=== PATIENT | female | born 1950 | race Caucasian/White ===

== ENCOUNTER → 2017-05-14 | Outpatient (CLI) | payer OTHER ==
[~2017-05-14] MED LIST: IOPAMIDOL (ISOVUE 370) 100 ML BTL IV ONE
== END ==
LOC: CIMAGING 10:45
PROVIDERS: ATTEND Internal Medicine Cardiovascular Disease
DX: I70.0 Atherosclerosis of aorta (principal); I70.1 Atherosclerosis of renal artery; N28.89 Other specified disorders of kidney and ureter; I10 Essential (primary) hypertension; E78.00 Pure hypercholesterolemia, unspecified; I25.10 Atherosclerotic heart disease of native coronary artery without angina pectoris; R00.2 Palpitations
CPT/HCPCS: 74175-PO; Q9967

== ENCOUNTER 2017-08-09 12:31 | Inpatient (IN) | payer OTHER ==
--- NOTE | 2017-08-09 13:17 | EDPHY ---
H & P Time Seen by Provider: 08/09/17 12:51 HPI/ROS: CHIEF COMPLAINT: Hypertension, shakiness HISTORY OF PRESENT ILLNESS: 67-year-old female presents with hypertension and shakiness. She was in the office to see Dr. Gauthier today and began to feel short of breath, shaky and nauseated. Dr. Gauthier checked her blood pressure and it was 220/110. She was sent to the emergency department for admission for evaluation of possible Maris disease verses pheochromocytoma. She currently feels better and is no longer so shaky her nauseated. She feels that her blood pressure the medication has subsided. She has a history of episodic hypertension, that is symptomatic. The hypertension usually occurs sporadically , every week or 2. However, since yesterday she has had multiple episodes of shakiness, shortness of breath and nausea, attributed to elevated blood pressure. Recently she had an elevated ACTH and a slight increase in metanephrines on a 24 hour urine sample. REVIEW OF SYSTEMS: Constitutional: No fever, no chills Eyes: No visual changes ENT: No sore throat Respiratory: No cough Cardiac: No chest pain Gastrointestinal: no vomiting, no abdominal pain Genitourinary: no dysuria Musculoskeletal: No leg pain or swelling Skin: No rash Neurological: No headache, no numbness, no weakness Psychiatric: No depression Past Medical/Surgical History: Hypertension, on lisinopril and diltiazem Social History: No recent alcohol Smoking Status: Former smoker Physical Exam: General Appearance: Alert, appears anxious Eyes: Pupils equal and round, no conjunctival pallor or injection ENT, Mouth: Mucous membranes moist Neck: Normal inspection Respiratory: Lungs are clear to auscultation Cardiovascular: Regular rate and rhythm, no murmur Gastrointestinal: Abdomen is soft and nontender Neurological: A&O, nonfocal exam Skin: Warm and dry, no rash Extremities: Nontender, no pedal edema Psychiatric: anxious Constitutional: Initial Vital Signs Temperature (C) 37 C 08/09/17 12:36 Heart Rate 104 H 08/09/17 12:36 Respiratory Rate 20 08/09/17 12:36 Blood Pressure 182/92 H 08/09/17 12:36 O2 Sat (%) 96 08/09/17 12:36 O2 Delivery Mode Room Air Allergies/Adverse Reactions: Penicillins Allergy (Verified 08/09/17 12:33) Home Medications: Medication Instructions Recorded Aspirin [Aspirin 81mg (*)] 81 mg PO DAILY 08/09/17 Diltiazem HCl [Diltiazem ER] 120 mg PO DAILY 08/09/17 Lisinopril [Zestril 20 mg (*)] 20 mg PO BID 08/09/17 Omeprazole [Prilosec 20 mg] 20 mg PO HS 08/09/17 PARoxetine HCL [Paroxetine Cr] 37.5 mg PO HS 08/09/17 Simvastatin [Zocor] 20 mg PO HS 08/09/17 ZOLPIDEM TARTRATE [Ambien CR 12.5 12.5 mg PO HS 08/09/17 mg] lamoTRIgine [Lamictal] 300 mg PO HS 08/09/17 Medical Decision Making - Diagnostics EKG Interpretation: EKG interpreted by me reveals sinus tachycardia, rate 104, no ST or T segment changes. ED Course/Re-evaluation: I spoke with Dr. Gauthier prior to this patient's arrival. She is concerned about [place] disease versus pheochromocytoma and requests admission for further evaluation. She requests a repeat 24 hour urine for metanephrines and a pituitary MRI. On my initial exam, the patient is feeling much better. Her blood pressure continues to be elevated. No blood pressure medication given while she was in the emergency department. No evidence of hypertensive emergency. EKG reveals no evidence of ischemia or dysrhythmia. Pituitary MRI ordered. She was stable during her emergency department stay. 1:20 p.m.-the hospitalist service was consulted for admission. Dr. Blayne Moody saw her in the emergency department. Differential Diagnosis: Differential diagnosis includes though is not limited to intracranial hemorrhage , acute coronary syndrome, acute renal insufficiency, Maris's disease, pheochromocytoma. - Data Points Laboratory Results: Laboratory Results 08/09/17 13:28 08/09/17 13:28 Medications Given: Acetaminophen (Tylenol) 650 mg PO Q4HRS PRN PRN Reason: Pain, Mild/Fever, Can Take PO Stop: 02/05/18 13:30 Last Admin: 08/09/17 20:24 Dose: 650 mg Aspirin (Aspirin) 81 mg PO DAILY [facility] Stop: 02/06/18 08:59 Last Admin: 08/11/17 08:02 Dose: 81 mg Atorvastatin Calcium (Lipitor) 10 mg PO HS [facility] Stop: 02/05/18 20:59 Last Admin: 08/10/17 20:24 Dose: 10 mg Diltiazem HCl (Cardizem Er Q24hr) 120 mg PO BID [facility] Stop: 02/06/18 12:14 Last Admin: 08/11/17 08:02 Dose: 120 mg Lisinopril (Zestril) 20 mg PO BID [facility] Stop: 02/05/18 20:59 Last Admin: 08/11/17 08:01 Dose: 20 mg Miscellaneous Medication (Non-Formulary) 0 ea PO [facility] Stop: 02/05/18 20:59 Last Admin: 08/10/17 20:23 Dose: 300 mg Ondansetron HCl (Zofran Odt) 4 mg PO Q4HRS PRN PRN Reason: Nausea/Vomiting, Use 1st Stop: 02/05/18 13:30 Last Admin: 08/10/17 12:32 Dose: 4 mg Pantoprazole Sodium (Protonix) 40 mg PO DAILY [facility] Stop: 02/06/18 08:59 Last Admin: 08/11/17 08:01 Dose: 40 mg Paroxetine HCl (Paxil Cr) 25 mg PO [facility] Stop: 02/05/18 20:59 Last Admin: 08/10/17 20:23 Dose: 25 mg Paroxetine HCl (Paxil Cr) 12.5 mg PO [facility] Stop: 02/05/18 20:59 Last Admin: 08/10/17 20:24 Dose: 12.5 mg Zolpidem Tartrate (Ambien) 10 mg PO [facility] Stop: 02/05/18 20:59 Last Admin: 08/10/17 20:24 Dose: 10 mg Discontinued Medications Dexamethasone (Decadron Intensol) 1 mg PO ONCE ONE Stop: 08/10/17 23:01 Last Admin: 08/10/17 23:00 Dose: 1 mg Diltiazem HCl (Cardizem Er Q24hr) 120 mg PO [facility] Stop: 02/05/18 20:59 Last Admin: 08/09/17 20:24 Dose: 120 mg Departure - Departure Disposition: [facility] Acute Clinical Impression: Hypertensive urgency Condition: Good
--- NOTE | 2017-08-09 13:17 | EDPHY ---
H & P Time Seen by Provider: 08/09/17 12:51 HPI/ROS: CHIEF COMPLAINT: Hypertension, shakiness HISTORY OF PRESENT ILLNESS: 67-year-old female presents with hypertension and shakiness. She was in the office to see Dr. Gauthier today and began to feel short of breath, shaky and nauseated. Dr. Gauthier checked her blood pressure and it was 220/110. She was sent to the emergency department for admission for evaluation of possible Maris disease verses pheochromocytoma. She currently feels better and is no longer so shaky her nauseated. She feels that her blood pressure the medication has subsided. She has a history of episodic hypertension, that is symptomatic. The hypertension usually occurs sporadically , every week or 2. However, since yesterday she has had multiple episodes of shakiness, shortness of breath and nausea, attributed to elevated blood pressure. Recently she had an elevated ACTH and a slight increase in metanephrines on a 24 hour urine sample. REVIEW OF SYSTEMS: Constitutional: No fever, no chills Eyes: No visual changes ENT: No sore throat Respiratory: No cough Cardiac: No chest pain Gastrointestinal: no vomiting, no abdominal pain Genitourinary: no dysuria Musculoskeletal: No leg pain or swelling Skin: No rash Neurological: No headache, no numbness, no weakness Psychiatric: No depression Past Medical/Surgical History: Hypertension, on lisinopril and diltiazem Social History: No recent alcohol Smoking Status: Former smoker Physical Exam: General Appearance: Alert, appears anxious Eyes: Pupils equal and round, no conjunctival pallor or injection ENT, Mouth: Mucous membranes moist Neck: Normal inspection Respiratory: Lungs are clear to auscultation Cardiovascular: Regular rate and rhythm, no murmur Gastrointestinal: Abdomen is soft and nontender Neurological: A&O, nonfocal exam Skin: Warm and dry, no rash Extremities: Nontender, no pedal edema Psychiatric: anxious Constitutional: Initial Vital Signs Temperature (C) 37 C 08/09/17 12:36 Heart Rate 104 H 08/09/17 12:36 Respiratory Rate 20 08/09/17 12:36 Blood Pressure 182/92 H 08/09/17 12:36 O2 Sat (%) 96 08/09/17 12:36 O2 Delivery Mode Room Air Allergies/Adverse Reactions: Penicillins Allergy (Verified 08/09/17 12:33) Home Medications: Medication Instructions Recorded Aspirin [Aspirin 81mg (*)] 81 mg PO DAILY 08/09/17 Diltiazem HCl [Diltiazem ER] 120 mg PO DAILY 08/09/17 Lisinopril [Zestril 20 mg (*)] 20 mg PO BID 08/09/17 Omeprazole [Prilosec 20 mg] 20 mg PO HS 08/09/17 PARoxetine HCL [Paroxetine Cr] 37.5 mg PO HS 08/09/17 Simvastatin [Zocor] 20 mg PO HS 08/09/17 ZOLPIDEM TARTRATE [Ambien CR 12.5 12.5 mg PO HS 08/09/17 mg] lamoTRIgine [Lamictal] 300 mg PO HS 08/09/17 Medical Decision Making - Diagnostics EKG Interpretation: EKG interpreted by me reveals sinus tachycardia, rate 104, no ST or T segment changes. ED Course/Re-evaluation: I spoke with Dr. Gauthier prior to this patient's arrival. She is concerned about [place] disease versus pheochromocytoma and requests admission for further evaluation. She requests a repeat 24 hour urine for metanephrines and a pituitary MRI. On my initial exam, the patient is feeling much better. Her blood pressure continues to be elevated. No blood pressure medication given while she was in the emergency department. No evidence of hypertensive emergency. EKG reveals no evidence of ischemia or dysrhythmia. Pituitary MRI ordered. She was stable during her emergency department stay. 1:20 p.m.-the hospitalist service was consulted for admission. Dr. Blayne Moody saw her in the emergency department. Differential Diagnosis: Differential diagnosis includes though is not limited to intracranial hemorrhage , acute coronary syndrome, acute renal insufficiency, Maris's disease, pheochromocytoma. - Data Points Laboratory Results: Laboratory Results 08/09/17 13:28 08/09/17 13:28 Medications Given: Acetaminophen (Tylenol) 650 mg PO Q4HRS PRN PRN Reason: Pain, Mild/Fever, Can Take PO Stop: 02/05/18 13:30 Last Admin: 08/09/17 20:24 Dose: 650 mg Aspirin (Aspirin) 81 mg PO DAILY [facility] Stop: 02/06/18 08:59 Last Admin: 08/11/17 08:02 Dose: 81 mg Atorvastatin Calcium (Lipitor) 10 mg PO HS [facility] Stop: 02/05/18 20:59 Last Admin: 08/10/17 20:24 Dose: 10 mg Diltiazem HCl (Cardizem Er Q24hr) 120 mg PO BID [facility] Stop: 02/06/18 12:14 Last Admin: 08/11/17 08:02 Dose: 120 mg Lisinopril (Zestril) 20 mg PO BID [facility] Stop: 02/05/18 20:59 Last Admin: 08/11/17 08:01 Dose: 20 mg Miscellaneous Medication (Non-Formulary) 0 ea PO [facility] Stop: 02/05/18 20:59 Last Admin: 08/10/17 20:23 Dose: 300 mg Ondansetron HCl (Zofran Odt) 4 mg PO Q4HRS PRN PRN Reason: Nausea/Vomiting, Use 1st Stop: 02/05/18 13:30 Last Admin: 08/10/17 12:32 Dose: 4 mg Pantoprazole Sodium (Protonix) 40 mg PO DAILY [facility] Stop: 02/06/18 08:59 Last Admin: 08/11/17 08:01 Dose: 40 mg Paroxetine HCl (Paxil Cr) 25 mg PO [facility] Stop: 02/05/18 20:59 Last Admin: 08/10/17 20:23 Dose: 25 mg Paroxetine HCl (Paxil Cr) 12.5 mg PO [facility] Stop: 02/05/18 20:59 Last Admin: 08/10/17 20:24 Dose: 12.5 mg Zolpidem Tartrate (Ambien) 10 mg PO [facility] Stop: 02/05/18 20:59 Last Admin: 08/10/17 20:24 Dose: 10 mg Discontinued Medications Dexamethasone (Decadron Intensol) 1 mg PO ONCE ONE Stop: 08/10/17 23:01 Last Admin: 08/10/17 23:00 Dose: 1 mg Diltiazem HCl (Cardizem Er Q24hr) 120 mg PO [facility] Stop: 02/05/18 20:59 Last Admin: 08/09/17 20:24 Dose: 120 mg Departure - Departure Disposition: [facility] Acute Clinical Impression: Hypertensive urgency Condition: Good
--- NOTE | 2017-08-09 13:17 | EDPHY ---
H & P Time Seen by Provider: 08/09/17 12:51 HPI/ROS: CHIEF COMPLAINT: Hypertension, shakiness HISTORY OF PRESENT ILLNESS: 67-year-old female presents with hypertension and shakiness. She was in the office to see Dr. Gauthier today and began to feel short of breath, shaky and nauseated. Dr. Gauthier checked her blood pressure and it was 220/110. She was sent to the emergency department for admission for evaluation of possible Maris disease verses pheochromocytoma. She currently feels better and is no longer so shaky her nauseated. She feels that her blood pressure the medication has subsided. She has a history of episodic hypertension, that is symptomatic. The hypertension usually occurs sporadically , every week or 2. However, since yesterday she has had multiple episodes of shakiness, shortness of breath and nausea, attributed to elevated blood pressure. Recently she had an elevated ACTH and a slight increase in metanephrines on a 24 hour urine sample. REVIEW OF SYSTEMS: Constitutional: No fever, no chills Eyes: No visual changes ENT: No sore throat Respiratory: No cough Cardiac: No chest pain Gastrointestinal: no vomiting, no abdominal pain Genitourinary: no dysuria Musculoskeletal: No leg pain or swelling Skin: No rash Neurological: No headache, no numbness, no weakness Psychiatric: No depression Past Medical/Surgical History: Hypertension, on lisinopril and diltiazem Social History: No recent alcohol Smoking Status: Former smoker Physical Exam: General Appearance: Alert, appears anxious Eyes: Pupils equal and round, no conjunctival pallor or injection ENT, Mouth: Mucous membranes moist Neck: Normal inspection Respiratory: Lungs are clear to auscultation Cardiovascular: Regular rate and rhythm, no murmur Gastrointestinal: Abdomen is soft and nontender Neurological: A&O, nonfocal exam Skin: Warm and dry, no rash Extremities: Nontender, no pedal edema Psychiatric: anxious Constitutional: Initial Vital Signs Temperature (C) 37 C 08/09/17 12:36 Heart Rate 104 H 08/09/17 12:36 Respiratory Rate 20 08/09/17 12:36 Blood Pressure 182/92 H 08/09/17 12:36 O2 Sat (%) 96 08/09/17 12:36 O2 Delivery Mode Room Air Allergies/Adverse Reactions: Penicillins Allergy (Verified 08/09/17 12:33) Home Medications: Medication Instructions Recorded Aspirin [Aspirin 81mg (*)] 81 mg PO DAILY 08/09/17 Diltiazem HCl [Diltiazem ER] 120 mg PO DAILY 08/09/17 Lisinopril [Zestril 20 mg (*)] 20 mg PO BID 08/09/17 Omeprazole [Prilosec 20 mg] 20 mg PO HS 08/09/17 PARoxetine HCL [Paroxetine Cr] 37.5 mg PO HS 08/09/17 Simvastatin [Zocor] 20 mg PO HS 08/09/17 ZOLPIDEM TARTRATE [Ambien CR 12.5 12.5 mg PO HS 08/09/17 mg] lamoTRIgine [Lamictal] 300 mg PO HS 08/09/17 Medical Decision Making - Diagnostics EKG Interpretation: EKG interpreted by me reveals sinus tachycardia, rate 104, no ST or T segment changes. ED Course/Re-evaluation: I spoke with Dr. Gauthier prior to this patient's arrival. She is concerned about [place] disease versus pheochromocytoma and requests admission for further evaluation. She requests a repeat 24 hour urine for metanephrines and a pituitary MRI. On my initial exam, the patient is feeling much better. Her blood pressure continues to be elevated. No blood pressure medication given while she was in the emergency department. No evidence of hypertensive emergency. EKG reveals no evidence of ischemia or dysrhythmia. Pituitary MRI ordered. She was stable during her emergency department stay. 1:20 p.m.-the hospitalist service was consulted for admission. Dr. Blayne Moody saw her in the emergency department. Differential Diagnosis: Differential diagnosis includes though is not limited to intracranial hemorrhage , acute coronary syndrome, acute renal insufficiency, Maris's disease, pheochromocytoma. - Data Points Laboratory Results: Laboratory Results 08/09/17 13:28 08/09/17 13:28 Medications Given: Acetaminophen (Tylenol) 650 mg PO Q4HRS PRN PRN Reason: Pain, Mild/Fever, Can Take PO Stop: 02/05/18 13:30 Last Admin: 08/09/17 20:24 Dose: 650 mg Aspirin (Aspirin) 81 mg PO DAILY [facility] Stop: 02/06/18 08:59 Last Admin: 08/11/17 08:02 Dose: 81 mg Atorvastatin Calcium (Lipitor) 10 mg PO HS [facility] Stop: 02/05/18 20:59 Last Admin: 08/10/17 20:24 Dose: 10 mg Diltiazem HCl (Cardizem Er Q24hr) 120 mg PO BID [facility] Stop: 02/06/18 12:14 Last Admin: 08/11/17 08:02 Dose: 120 mg Lisinopril (Zestril) 20 mg PO BID [facility] Stop: 02/05/18 20:59 Last Admin: 08/11/17 08:01 Dose: 20 mg Miscellaneous Medication (Non-Formulary) 0 ea PO [facility] Stop: 02/05/18 20:59 Last Admin: 08/10/17 20:23 Dose: 300 mg Ondansetron HCl (Zofran Odt) 4 mg PO Q4HRS PRN PRN Reason: Nausea/Vomiting, Use 1st Stop: 02/05/18 13:30 Last Admin: 08/10/17 12:32 Dose: 4 mg Pantoprazole Sodium (Protonix) 40 mg PO DAILY [facility] Stop: 02/06/18 08:59 Last Admin: 08/11/17 08:01 Dose: 40 mg Paroxetine HCl (Paxil Cr) 25 mg PO [facility] Stop: 02/05/18 20:59 Last Admin: 08/10/17 20:23 Dose: 25 mg Paroxetine HCl (Paxil Cr) 12.5 mg PO [facility] Stop: 02/05/18 20:59 Last Admin: 08/10/17 20:24 Dose: 12.5 mg Zolpidem Tartrate (Ambien) 10 mg PO [facility] Stop: 02/05/18 20:59 Last Admin: 08/10/17 20:24 Dose: 10 mg Discontinued Medications Dexamethasone (Decadron Intensol) 1 mg PO ONCE ONE Stop: 08/10/17 23:01 Last Admin: 08/10/17 23:00 Dose: 1 mg Diltiazem HCl (Cardizem Er Q24hr) 120 mg PO [facility] Stop: 02/05/18 20:59 Last Admin: 08/09/17 20:24 Dose: 120 mg Departure - Departure Disposition: [facility] Acute Clinical Impression: Hypertensive urgency Condition: Good
--- NOTE | 2017-08-09 13:23 | CPEKG ---
Heart Rate: 104 RR Interval: 577 P-R Interval: 152 QRSD Interval: 94 QT Interval: 340 QTC Interval: 448 P [place]: 63 QRS [place]: -6 T Wave [place]: 7 EKG Severity - OTHERWISE NORMAL ECG - EKG Impression: SINUS TACHYCARDIA Electronically Signed By: Marisa King 09-Aug-2017 14:11:59
[2017-08-09] MEDS ORDERED: ONDANSETRON DISINTEGRATING 4 MG TAB PO PRN ×2 (13:31)
[2017-08-09] MEDS ORDERED: ACETAMINOPHEN 325 MG TAB PO PRN ×2 (13:31)
[2017-08-09] MEDS ORDERED: ONDANSETRON 4 MG/2 ML VIAL IVP PRN ×2 (13:31)
[2017-08-09 13:37] LABS: PLATELET COUNT 310 10^3/uL (150-400)
[2017-08-09] MEDS ORDERED: GADOBUTROL 10 ML VIAL IVP ONE ×2 (14:38)
--- NOTE | 2017-08-09 15:32 | PDGENHP ---
History and Physical - Chief Complaint Acute tremulousness - History of Present Illness Primary care provider: Dr. Frannie Rosario Primary design studio consultant: Dr. Wali Jeff Primary shaft headman: Dr. Tiago Gauthier HPI: 67-year-old female presenting with acute tremulousness characterized as general body shaking with associated nausea, palpitations, shortness of breath with onset of these immediate symptoms on the day prior, beginning is soon as the patient awoke from sleep, with intermittent duration thereafter. Patient reports that the episodes sometimes last shortness 20 minutes, sometimes as long as 2 hours, and are mildly alleviated by deep slow breathing, not exacerbated by any level of physical activity. She has been checking her blood pressure during these episodes, as noted systolic levels around 190. She also checks her blood pressure when she is feeling well, and no set is generally in the 130-140 range. She reports she has been experiencing this similar constellation of symptoms for the past 3 and half years. To the patient, it seems random when she experiences these symptoms, and she can sometimes go 1-2 weeks without experiencing them at all. She was recently on a cruise, and reports that she only experience them very mildly once during that 7 day period. She recently returned home from the cruise, and reports recurrence of them since that time. She denies living a stressful life, outside of managing her symptoms. She reports she is completely adherent to her home medications, and has not had any recent changes in her antihypertensives or psychiatric medications. History Information - Allergies/Home Medication List Allergies/Adverse Reactions: Penicillins Allergy (Verified 08/09/17 12:33) Home Medications: Aspirin [Aspirin 81mg (*)] 81 mg PO DAILY 08/09/17 [Last Taken 08/09/17] Diltiazem HCl [Diltiazem ER] 120 mg PO DAILY 08/09/17 [Last Taken Unknown] Lisinopril [Zestril 20 mg (*)] 20 mg PO BID 08/09/17 [Last Taken 08/09/17] Omeprazole [Prilosec 20 mg] 20 mg PO HS 08/09/17 [Last Taken 08/08/17] PARoxetine HCL [Paroxetine Cr] 37.5 mg PO HS 08/09/17 [Last Taken 08/08/17] Simvastatin [Zocor] 20 mg PO HS 08/09/17 [Last Taken 08/08/17] ZOLPIDEM TARTRATE [Ambien CR 12.5 mg] 12.5 mg PO HS 08/09/17 [Last Taken ] lamoTRIgine [LamICTAL XR] 300 mg PO HS 08/09/17 [Last Taken 08/08/17] I have personally reviewed and updated: family history, medical history, social history, surgical history - Past Medical History hypertension (Reportedly labile, diagnosed 3 and half years ago) Additional medical history: Bipolar disorder type 2 with depressive symptoms. Recurrent small bowel obstructions - Surgical History Additional surgical history: Small-bowel obstruction with resection. Appendectomy. 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 - Family History Additional family history: No family history of endocrine disorders, no family history of labile hypertension - Social History Smoking Status: Former smoker Alcohol Use: None (Very rarely) Drug Use: None Additional social history: Patient reports she is independent in her ADLs Review of Systems Review of Systems: ROS: 10pt was reviewed & negative except for what was stated in HPI & below Constitutional: Reports: other (Tremulousness) Cardiac: Reports: palpitations Respiratory: Reports: shortness of breath Gastrointestinal: Reports: nausea Physical Exam Physical Exam: Temp Pulse Resp BP Pulse Ox 37 C 100 16 179/105 H 95 08/09/17 12:36 08/09/17 13:55 08/09/17 13:55 08/09/17 13:55 08/09/17 13:55 Constitutional: no apparent distress, appears nourished, not in pain, uncomfortable Eyes: PERRL, anicteric sclera, EOMI Ears, Nose, Mouth, Throat: moist mucous membranes, hearing normal, ears appear normal, no oral mucosal ulcers Cardiovascular: regular rate and rhythym, no murmur, rub, or gallop, No edema Respiratory: no respiratory distress, no rales or rhonchi, clear to auscultation Gastrointestinal: normoactive bowel sounds, soft, non-tender abdomen, no palpable masses, No distension Skin: warm, normal color, no rashes or abrasions, no fluctuance, no induration, No mottled Neurologic: AAOx3, sensation intact bilaterally, CN II-XII Intact, other ( Visibly tremulous upon the initiation of our exam, subsided somewhat during the exam), No weakness Psychiatric: interacting appropriately, not encephalopathic, thought process linear, anxious, No agitated Lab Data & Imaging Review 08/09/17 13:28 08/09/17 13:28 WBC 7.56 10^3/uL (3.80-9.50) 08/09/17 13:28 RBC 4.22 10^6/uL (4.18-5.33) 08/09/17 13:28 Hgb 13.1 g/dL (12.6-16.3) 08/09/17 13:28 Hct 37.7 % (38.0-47.0) L 08/09/17 13:28 MCV 89.3 fL (81.5-99.8) 08/09/17 13:28 MCH 31.0 pg (27.9-34.1) 08/09/17 13:28 MCHC 34.7 g/dL (32.4-36.7) 08/09/17 13:28 RDW 12.4 % (11.5-15.2) 08/09/17 13:28 Plt Count 310 10^3/uL (150-400) 08/09/17 13:28 MPV 8.8 fL (8.7-11.7) 08/09/17 13:28 Neut % (Auto) 78.1 % (39.3-74.2) H 08/09/17 13:28 Lymph % (Auto) 15.6 % (15.0-45.0) 08/09/17 13:28 [place] % (Auto) 5.2 % (4.5-13.0) 08/09/17 13:28 Eos % (Auto) 0.1 % (0.6-7.6) L 08/09/17 13:28 Baso % (Auto) 0.5 % (0.3-1.7) 08/09/17 13:28 Nucleat RBC Rel Count 0.0 % (0.0-0.2) 08/09/17 13:28 Absolute Neuts (auto) 5.90 10^3/uL (1.70-6.50) 08/09/17 13:28 Absolute Lymphs (auto) 1.18 10^3/uL (1.00-3.00) 08/09/17 13:28 Absolute Monos (auto) 0.39 10^3/uL (0.30-0.80) 08/09/17 13:28 Absolute Eos (auto) 0.01 10^3/uL (0.03-0.40) L 08/09/17 13:28 Absolute Basos (auto) 0.04 10^3/uL (0.02-0.10) 08/09/17 13:28 Absolute Nucleated RBC 0.00 10^3/uL (0-0.01) 08/09/17 13:28 Immature Gran % 0.5 % (0.0-1.1) 08/09/17 13:28 Immature Gran # 0.04 10^3/uL (0.00-0.10) 08/09/17 13:28 Sodium 133 mEq/L (134-144) L 08/09/17 13:28 Potassium 4.5 mEq/L (3.5-5.2) 08/09/17 13:28 Chloride 94 mEq/L (97-110) L 08/09/17 13:28 Carbon Dioxide 23 mEq/l (22-31) 08/09/17 13:28 Anion Gap 16 mEq/L (8-16) 08/09/17 13:28 BUN 12 mg/dL (7-23) 08/09/17 13:28 Creatinine 0.7 mg/dL (0.6-1.0) 08/09/17 13:28 Estimated GFR > 60 08/09/17 13:28 Glucose 148 mg/dL (70-100) H 08/09/17 13:28 Calcium 10.2 mg/dL (8.5-10.4) 08/09/17 13:28 Magnesium 1.8 mg/dL (1.6-2.3) 08/09/17 13:28 Troponin I < 0.012 ng/mL (0.000-0.034) 08/09/17 13:28 Visualized and Interpreted EKG results: Yes EKG Interpretation: Positive for: other (Sinus tachycardia with isolated ST depression in lead V6) Assessment & Plan Assessment: 67-year-old female presents with hypertensive urgency in the setting of constellation of tremulousness, nausea, palpitations, shortness of breath Plan: 1. Hypertensive urgency. Acute, new problem this provider, further workup indicated. Evidenced by systolic blood pressure in the 220s at Dr. Gauthier's office, with associated tremulousness, nausea, palpitations, shortness of breath. It is unclear whether the patient's symptoms are result of her hypertension, or whether her hypertension is result of discomfort from her symptoms. -discussed with Dr. aGuthier, she reports to me that the patient has had a 24 hour urine sample collected when she was not symptomatic, and this demonstrated a mildly elevated ACTH level, elevated metanephrines, normal cortisol, decreased urine sodium level, and she is concerned for Maris's disease -she recommends initial evaluation with pituitary MRI as well as dexamethasone suppression test in a.m. -she also recommends 24 hour urine collection for all the previously sampled levels, given the patient is now symptomatic and may demonstrate more significant abnormalities -if the pituitary MRI does not demonstrate focal mass, this does not rule out Maris's disease as the area of production can be smaller than that which can be radiographically detected, but Dr. Gauthier would recommend adrenal MRI if this initial imaging is negative to evaluate for pheochromocytoma -we discussed the possibility that all of this aforementioned testing may demonstrate no abnormalities, and it is certainly possible that the patient's initial abnormalities in her metanephrine and ACTH levels was secondary to acute stressor, and in that situation it may be more suggestive that her hypertension is a result of her symptoms, which may be more likely mood disorder mediated as the patient is able to consciously mediated them with slow deep breathing -if there are abnormalities on the above tests or further questions are posed by the results, please contact Dr. Tiago Gauthier tomorrow at [phone] -at the present time, we will continue patient's home antihypertensives, notably lisinopril 20 mg twice daily and diltiazem 240 mg at bedtime, and gauge the fluctuations in the patient's blood pressure -will also monitor the patient on telemetry to determine whether she is experiencing any arrhythmias during her symptomatic palpitations -should also be noted that review of outside records demonstrates that the patient had a cardiac catheterization on 06/09/[address] Allan Brian as further investigation for the aforementioned symptoms, and that catheterization demonstrated no evidence of obstructive coronary disease, normal ejection fraction of 70% -should also be noted that the patient had a 48 hour event monitor for evaluation of her palpitations, but she notes that she did not experience any symptoms during that time, and there were no arrhythmias noted on the monitor -consequently, I would recommend the patient have implantable linq recorder to be arranged through [facility] -the patient already underwent CT angio of the renal arteries on 05/14/2017, it did demonstrate 50% stenosis on the left, minimal on the right, this does not seem to be a degree of stenosis significant enough to be causing secondary hypertension from renal artery stenosis, but it may be a contributing factor -would recommend outpatient sleep study 2. Bipolar type 2 disease. Continue patient's home medications 3. Hyponatremia. Chronic, unclear whether that is related to the issues outlined above Diet. Cardiac Prophylaxis. High risk patient, Lovenox 40 Code. Full Disposition. Anticipated discharge is 08/10/2017, pending further workup as outlined above.
[2017-08-09] MEDS: LAMOTRIGINE 200 MG PO SCH ×2 (20:23)
[2017-08-09] MEDS: PARoxetine CR 25 MG TAB PO SCH ×2 (20:24)
[2017-08-09] MEDS: ATORVASTATIN CALCIUM 10 MG TAB PO SCH ×2 (20:24)
[2017-08-09] MEDS: ZOLPIDEM TARTRATE 5 MG TAB PO SCH ×2 (20:24)
[2017-08-09] MEDS: PARoxetine CR 12.5 MG TAB PO SCH ×2 (20:24)
[2017-08-09] MEDS: LISINOPRIL 20 MG TAB PO SCH ×2 (20:25)
[2017-08-09] MEDS ORDERED: NON-FORMULARY NEW DRUG (Omeprazole [Prilosec 20 Mg] 20 MG) PO SCH ×2 (21:00)
[2017-08-09] MEDS ORDERED: LAMOTRIGINE 300 MG PO SCH ×4 (21:00)
[2017-08-09] MEDS ORDERED: PAROXETINE HCL 37.5 MG PO SCH ×2 (21:00)
[2017-08-09] MEDS ORDERED: NON-FORMULARY NEW DRUG (Zolpidem Tartrate [Ambien Cr 12.5 Mg] 12.5 MG) PO SCH ×2 (21:00)
[2017-08-09] MEDS ORDERED: NON-FORMULARY NEW DRUG (Simvastatin [Zocor] 20 MG) PO SCH ×2 (21:00)
[2017-08-09] MEDS ORDERED: DILTIAZEM HCL 120 MG PO SCH ×2 (21:00)
[2017-08-09] MEDS ORDERED: (Lamotrigine [Lamictal Xr] 300 MG) PO SCH ×4 (21:00)
[2017-08-09] MEDS ORDERED: DILTIAZEM CD 120 MG CAP PO SCH ×2 (21:00)
[2017-08-10] MEDS: LISINOPRIL 20 MG TAB PO SCH ×4 (08:23→20:24)
[2017-08-10] MEDS: ASPIRIN 81 MG CHEWABLE TAB PO SCH ×2 (08:23)
[2017-08-10] MEDS: PANTOPRAZOLE SODIUM 40 MG TAB PO SCH ×2 (08:23)
--- NOTE | 2017-08-10 12:08 | HOSPPROG ---
Hospitalist Progress Note Assessment/Plan: Hypertensive urgency - BP improving. Concern for pheo with associated palpitations. Recent 24 hr urine revealed elevated ACTH and elevated metanephrines. Serum ACTH and metanephrines elevated. ?Maris's or pheo. Brain MRI showed very small pituitary adenoma, unlikely to be secretory per discussion with Dr. Mitchell. -24 hr urine collection in progress -check TSH -dexamethasone suppression test (1 mg po dex tonight at 2300 and 8 AM cortisol ordered) -abd / adrenal MRI today -up-titrate diltiazem as below -if above w/u unrevealing, Dr. Mitchell will be referring her [facility] Tachycardia - episodic palpitations, tele personally reviewed and interpreted, episodes of sinus tac, no a fib seen -w/u as above -recommend outpt f/u [facility] for consideration of linq monitor ( previous holter unrevealing) Bipolar disorder - mood stable Hyponatremia - improved (Na 130 --> 133) Full code Dispo - change to inpt, needs ongoing endocrine workup Subjective: Pt feels "lousy". She continues to get episodes of tachycardia / palpitations and flushing. No CP or SOB. Objective: Vital Signs Temp Pulse Resp BP Pulse Ox 36.9 C 102 H 14 155/90 H 94 08/10/17 11:28 08/10/17 11:28 08/10/17 11:28 08/10/17 11:28 08/10/17 11:28 08/09/17 08/10/17 08/11/17 05:59 05:59 04:59 Intake Total 750 Output Total 400 Balance 350 - Physical Exam Constitutional: no apparent distress Eyes: PERRL Ears, Nose, Mouth, Throat: moist mucous membranes Cardiovascular: regular rate and rhythym Respiratory: no respiratory distress Gastrointestinal: normoactive bowel sounds, soft, non-tender abdomen Skin: warm Musculoskeletal: full muscle strength Neurologic: AAOx3 Psychiatric: interacting appropriately ICD10 Worksheet Patient Problems: Problems Problem Status Onset Hypertensive urgency Acute - ICD10 Problem Qualifiers (1) Hypertensive urgency
--- NOTE | 2017-08-10 12:08 | HOSPPROG ---
Hospitalist Progress Note Assessment/Plan: Hypertensive urgency - BP improving. Concern for pheo with associated palpitations. Recent 24 hr urine revealed elevated ACTH and elevated metanephrines. Serum ACTH and metanephrines elevated. ?Maris's or pheo. Brain MRI showed very small pituitary adenoma, unlikely to be secretory per discussion with Dr. Mitchell. -24 hr urine collection in progress -check TSH -dexamethasone suppression test (1 mg po dex tonight at 2300 and 8 AM cortisol ordered) -abd / adrenal MRI today -up-titrate diltiazem as below -if above w/u unrevealing, Dr. Mitchell will be referring her to [place] [facility] Tachycardia - episodic palpitations, tele personally reviewed and interpreted, episodes of sinus tac, no a fib seen -w/u as above -recommend outpt f/u [facility] for consideration of linq monitor ( previous holter unrevealing) Bipolar disorder - mood stable Hyponatremia - improved (Na 130 --> 133) Full code Dispo - change to inpt, needs ongoing endocrine workup Subjective: Pt feels "lousy". She continues to get episodes of tachycardia / palpitations and flushing. No CP or SOB. Objective: Vital Signs Temp Pulse Resp BP Pulse Ox 36.9 C 102 H 14 155/90 H 94 08/10/17 11:28 08/10/17 11:28 08/10/17 11:28 08/10/17 11:28 08/10/17 11:28 08/09/17 08/10/17 08/11/17 05:59 05:59 04:59 Intake Total 750 Output Total 400 Balance 350 - Physical Exam Constitutional: no apparent distress Eyes: PERRL Ears, Nose, Mouth, Throat: moist mucous membranes Cardiovascular: regular rate and rhythym Respiratory: no respiratory distress Gastrointestinal: normoactive bowel sounds, soft, non-tender abdomen Skin: warm Musculoskeletal: full muscle strength Neurologic: AAOx3 Psychiatric: interacting appropriately ICD10 Worksheet Patient Problems: Problems Problem Status Onset Hypertensive urgency Acute - ICD10 Problem Qualifiers (1) Hypertensive urgency
--- NOTE | 2017-08-10 12:08 | HOSPPROG ---
Hospitalist Progress Note Assessment/Plan: Hypertensive urgency - BP improving. Concern for pheo with associated palpitations. Recent 24 hr urine revealed elevated ACTH and elevated metanephrines. Serum ACTH and metanephrines elevated. ?Maris's or pheo. Brain MRI showed very small pituitary adenoma, unlikely to be secretory per discussion with Dr. Mitchell. -24 hr urine collection in progress -check TSH -dexamethasone suppression test (1 mg po dex tonight at 2300 and 8 AM cortisol ordered) -abd / adrenal MRI today -up-titrate diltiazem as below -if above w/u unrevealing, Dr. Mitchell will be referring her to [place] [facility] Tachycardia - episodic palpitations, tele personally reviewed and interpreted, episodes of sinus tac, no a fib seen -w/u as above -recommend outpt f/u [facility] for consideration of linq monitor ( previous holter unrevealing) Bipolar disorder - mood stable Hyponatremia - improved (Na 130 --> 133) Full code Dispo - change to inpt, needs ongoing endocrine workup Subjective: Pt feels "lousy". She continues to get episodes of tachycardia / palpitations and flushing. No CP or SOB. Objective: Vital Signs Temp Pulse Resp BP Pulse Ox 36.9 C 102 H 14 155/90 H 94 08/10/17 11:28 08/10/17 11:28 08/10/17 11:28 08/10/17 11:28 08/10/17 11:28 08/09/17 08/10/17 08/11/17 05:59 05:59 04:59 Intake Total 750 Output Total 400 Balance 350 - Physical Exam Constitutional: no apparent distress Eyes: PERRL Ears, Nose, Mouth, Throat: moist mucous membranes Cardiovascular: regular rate and rhythym Respiratory: no respiratory distress Gastrointestinal: normoactive bowel sounds, soft, non-tender abdomen Skin: warm Musculoskeletal: full muscle strength Neurologic: AAOx3 Psychiatric: interacting appropriately ICD10 Worksheet Patient Problems: Problems Problem Status Onset Hypertensive urgency Acute - ICD10 Problem Qualifiers (1) Hypertensive urgency
[2017-08-10] MEDS: DILTIAZEM CD 120 MG CAP PO SCH ×4 (12:32→20:24)
--- NOTE | 2017-08-10 13:09 | PDMN ---
Medical Necessity Medical necessity: C/M review: Patient meets INPT criteria under [facility] M-197 Hypertension; Acute hypertensive urgency (203/92, 197/114, 155/90), acute and persistent sinus tachycardia (heart rate 102-110, increases to 135 with activity - of unclear etiology), palpitations, very small pituitary adenoma on brain MRI, concern for possible pheochromocytoma or Maris's, hyponatremia, Na 130, 133, requiring planned 08/10/17 abdomen / adrenal MRI, endocrine evaluation (24 hr. urine collection for ACTH, metanephrines, dexamethasone suppression test), ongoing cardiac monitoring, comorbid recent 24 hr. urine elevated ACTH and metanephrines, elevated serum ACTH and metanephrines), bipolar disorder. MD anticipates > 2 [place] LOS for ongoing med nec for eval and TX of above.
--- NOTE | 2017-08-10 13:09 | PDMN ---
Medical Necessity Medical necessity: C/M review: Patient meets INPT criteria under [facility] M-197 Hypertension; Acute hypertensive urgency (203/92, 197/114, 155/90), acute and persistent sinus tachycardia (heart rate 102-110, increases to 135 with activity - of unclear etiology), palpitations, very small pituitary adenoma on brain MRI, concern for possible pheochromocytoma or Maris's, hyponatremia, Na 130, 133, requiring planned 08/10/17 abdomen / adrenal MRI, endocrine evaluation (24 hr. urine collection for ACTH, metanephrines, dexamethasone suppression test), ongoing cardiac monitoring, comorbid recent 24 hr. urine elevated ACTH and metanephrines, elevated serum ACTH and metanephrines), bipolar disorder. MD anticipates > 2 [place] LOS for ongoing med nec for eval and TX of above.
--- NOTE | 2017-08-10 13:09 | PDMN ---
Medical Necessity Medical necessity: C/M review: Patient [place] [facility] [place] Hypertension; Acute hypertensive urgency (203/92, 197/114, 155/90), acute and persistent sinus tachycardia (heart rate 102-110, increases to 135 with activity - of unclear etiology), palpitations, very small pituitary adenoma on brain MRI, concern for possible pheochromocytoma or Maris's, hyponatremia, Na 130, 133, requiring planned 08/10/17 abdomen / adrenal MRI, endocrine evaluation (24 hr. urine collection for ACTH, metanephrines, dexamethasone suppression test), ongoing cardiac monitoring, comorbid recent 24 hr. urine elevated ACTH and metanephrines, elevated serum ACTH and metanephrines), bipolar disorder. MD anticipates > 2 [place] LOS for ongoing med nec for eval and TX of above.
[2017-08-10] MEDS ORDERED: GADOBUTROL 10 ML VIAL IVP ONE ×2 (14:52)
--- NOTE | 2017-08-10 15:08 | ASMTCMCOM ---
CM Note CM Note Notes: Reviewed chart for discharge plan, pt's progress. Per MD notes, pt status changed to inpt for ongoing endocrine workup; concerns of pheo. Pt lives w/ her . Anticipate pt will likely return home independently when medically stable. CM will cont to follow. Current Discharge Plan: Home independently w/ family support Date Signed: 08/10/2017 03:08 PM Electronically Signed By:Dora Ceja RN
[2017-08-10] MEDS: LAMOTRIGINE 200 MG PO SCH ×2 (20:23)
[2017-08-10] MEDS: PARoxetine CR 25 MG TAB PO SCH ×2 (20:23)
[2017-08-10] MEDS: ATORVASTATIN CALCIUM 10 MG TAB PO SCH ×2 (20:24)
[2017-08-10] MEDS: PARoxetine CR 12.5 MG TAB PO SCH ×2 (20:24)
[2017-08-10] MEDS: ZOLPIDEM TARTRATE 5 MG TAB PO SCH ×2 (20:24)
[2017-08-10] MEDS ORDERED: DEXAMETHASONE 1 MG/ML UDSYR PO ONE ×2 (23:00)
[2017-08-11] MEDS: LISINOPRIL 20 MG TAB PO SCH ×2 (08:01)
[2017-08-11] MEDS: PANTOPRAZOLE SODIUM 40 MG TAB PO SCH ×2 (08:01)
[2017-08-11] MEDS: ASPIRIN 81 MG CHEWABLE TAB PO SCH ×2 (08:02)
[2017-08-11] MEDS: DILTIAZEM CD 120 MG CAP PO SCH ×2 (08:02)
[2017-08-11 11:08] VITALS: BP 123/63; PULSE 93; RESP 18; TEMP 98.3; O2SAT 95
--- NOTE | 2017-08-11 14:01 | ASDISCHSUM ---
Discharge Information Plan Status:Home with No Needs Medically Cleared to Leave:08/11/2017 Discharge Date:08/11/2017 12:56 PM CM D/C Disposition:Home, Routine, Self-Care ADT D/C Disposition:Home, Routine, Self-Care Projected Discharge Date:08/11/2017 12:56 PM Transportation at D/C:Family Discharge Delay Reason: Follow-Up Date:08/11/2017 12:56 PM Discharge Slot:2 - 12:01 pm - 18:00 pm Final Diagnosis:Hypertensive urgency, tachycardia, bipolar disorder, hyponatremia Placement Information Patient Contact Information Contact Name:PETERSON Relationship: [address] Work Phone: Katalian:DASH Covarrubias Phone: State/Zip Code:[place] [address] Email: Financial Information Financial Class:Pedro [email or web address] Primary Plan Desc:[employer] LOCAL Primary Plan Number:[id number] Secondary Plan Desc:MEDICARE OUTPATIENT Secondary Plan Number:[id number] Assessment Information LACE LACBernie Length of stay for Answers: Less than 1 day current admission Acuity / Level of Care Answers: Was the patient admitted to hospital via the emergency department? Yes: Emergency dept visits in Answers: 1 last 6 months Score: 4 Date Signed: 08/09/2017 01:57 PM Electronically Signed By:Irena Ritchie LCSW [facility] CM Progress Note CM Note CM Note Notes: Reviewed chart for discharge plan, pt's progress. Per MD notes, pt status changed to inpt for ongoing endocrine workup; concerns of pheo. Pt lives w/ her . Anticipate pt will likely return home independently when medically stable. CM will cont to follow. Current Discharge Plan: Home independently w/ family support Date Signed: 08/10/2017 03:08 PM Electronically Signed By:Dora Ceja RN [facility] CM Progress Note CM Note CM Note Notes: Reviewed chart regarding pt's progress. Per MD, pt to discharge home today independently w/ family support and no identified needs. Pt to follow up as directed. No IM signed, not applicable, pt has [employer]. CM avail for any further issues or concerns. Final Discharge Plan: Home independently Date Signed: 08/11/2017 02:00 PM Electronically Signed By:Dora Ceja RN Intervention Information
--- NOTE | 2017-08-11 14:01 | ASDISCHSUM ---
Discharge Information Plan Status:Home with No Needs Medically Cleared to Leave:08/11/2017 Discharge Date:08/11/2017 12:56 PM CM D/C Disposition:Home, Routine, Self-Care ADT D/C Disposition:Home, Routine, Self-Care Projected Discharge Date:08/11/2017 12:56 PM Transportation at D/C:Family Discharge Delay Reason: Follow-Up Date:08/11/2017 12:56 PM Discharge Slot:2 - 12:01 pm - 18:00 pm Final Diagnosis:Hypertensive urgency, tachycardia, bipolar disorder, hyponatremia Placement Information Patient Contact Information Contact Name:PETERSON Relationship: [address] Work Phone: Katalina:DASH Covarrubias Phone: State/Zip Code:[place] [address] Email: Financial Information Financial Class:Pedro [employer] Primary Plan Desc:[employer] OPEN [employer] LOCAL Primary Plan Number:[id number] Secondary Plan Desc:MEDICARE OUTPATIENT Secondary Plan Number:[id number] Assessment Information LACE LACBernie Length of stay for Answers: Less than 1 day current admission Acuity / Level of Care Answers: Was the patient admitted to hospital via the emergency department? Yes: Emergency dept visits in Answers: 1 last 6 months Score: 4 Date Signed: 08/09/2017 01:57 PM Electronically Signed By:Irena Ritchie LCSW [facility] CM Progress Note CM Note CM Note Notes: Reviewed chart for discharge plan, pt's progress. Per MD notes, pt status changed to inpt for ongoing endocrine workup; concerns of pheo. Pt lives w/ her . Anticipate pt will likely return home independently when medically stable. CM will cont to follow. Current Discharge Plan: Home independently w/ family support Date Signed: 08/10/2017 03:08 PM Electronically Signed By:Dora Ceja RN [facility] CM Progress Note CM Note CM Note Notes: Reviewed chart regarding pt's progress. Per MD, pt to discharge home today independently w/ family support and no identified needs. Pt to follow up as directed. No IM signed, not applicable, pt has [employer]. CM avail for any further issues or concerns. Final Discharge Plan: Home independently Date Signed: 08/11/2017 02:00 PM Electronically Signed By:Dora Ceja RN Intervention Information
--- NOTE | 2017-08-11 14:01 | ASDISCHSUM ---
Discharge Information Plan Status:Home with No Needs Medically Cleared to Leave:08/11/2017 Discharge Date:08/11/2017 12:56 PM CM D/C Disposition:Home, Routine, Self-Care ADT D/C Disposition:Home, Routine, Self-Care Projected Discharge Date:08/11/2017 12:56 PM Transportation at D/C:Family Discharge Delay Reason: Follow-Up Date:08/11/2017 12:56 PM Discharge Slot:2 - 12:01 pm - 18:00 pm Final Diagnosis:Hypertensive urgency, tachycardia, bipolar disorder, hyponatremia Placement Information Patient Contact Information Contact Name:PETERSON Relationship: [address] [facility] Work Phone: Katalina:DASH Covarrubias Phone: State/Zip Code:[place] [address] Email: Financial Information Financial Class:[employer] Primary Plan Desc:[facility]RO [employer] O OPEN ACC LOCAL Primary Plan Number:[id number] Secondary Plan Desc:MEDICARE OUTPATIENT Secondary Plan Number:[id number] Assessment Information LACE LACBernie Length of stay for Answers: Less than 1 day current admission Acuity / Level of Care Answers: Was the patient admitted to hospital via the emergency department? Yes: Emergency dept visits in Answers: 1 last 6 months Score: 4 Date Signed: 08/09/2017 01:57 PM Electronically Signed By:Irena Ritchie LCSW [facility] CM Progress Note CM Note CM Note Notes: Reviewed chart for discharge plan, pt's progress. Per MD notes, pt status changed to inpt for ongoing endocrine workup; concerns of pheo. Pt lives w/ her . Anticipate pt will likely return home independently when medically stable. CM will cont to follow. Current Discharge Plan: Home independently w/ family support Date Signed: 08/10/2017 03:08 PM Electronically Signed By:Dora Ceja RN [facility] CM Progress Note CM Note CM Note Notes: Reviewed chart regarding pt's progress. Per MD, pt to discharge home today independently w/ family support and no identified needs. Pt to follow up as directed. No IM signed, not applicable, pt has [employer]. CM avail for any further issues or concerns. Final Discharge Plan: Home independently Date Signed: 08/11/2017 02:00 PM Electronically Signed By:Dora Ceja RN Intervention Information
--- NOTE | 2017-08-11 23:32 | GDS ---
[f rep st] DISCHARGE SUMMARY DISCHARGE DIAGNOSES: 1. Hypertensive urgency, resolved. 2. Episodic tachycardia. 3. Hyponatremia, improved. 4. Bipolar disorder, stable. CONSULTANTS: None. IMAGING STUDIES/PROCEDURES: 1. Brain MRI on August 09, 2017, showed a 2.6 mm area of diminished enhancement involving the right side of the pituitary gland, associated with slight increase in volume of the right pituitary lobe, suspicious for a small pituitary microadenoma. 2. Abdominal MRI with adrenal protocol showed no visible etiology for the patient's labile blood pre ssure. HISTORY: For details, please see the History and Physical dated August 09, 2017. In brief, the april davies is a 67-year-old female with a history of hypertension and bipolar disorder with depressive symp toms, who presented to the emergency department with an episode of tremors, palpitations, shortness o f breath, and nausea. She has been having similar intermittent episodes over the past 3 years, and s he states they have become progressively worse. 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 In the outpatient setting, a 24-hour urine sample was collected, which showed a mildly elevated ACTH level and elevated metanephrines with normal cortisol and concern arose for [place]'s. She was admit prema to the hospital for further evaluation. HOSPITAL COURSE: The patient was admitted to the med/surg unit. A brain MRI revealed a 2.6 mm pitui tary microadenoma. It is unclear if this is secretory or nonsecretory. This case was discussed with Dr. Gauthier, who notes usually 1-2 mm pituitary adenomas are not problematic. An abdominal MRI with adrenal protocol was negative. She underwent a dexamethasone suppression test with 1 mg of dexametha sone, and she appropriately suppressed with the morning cortisol level of 1.5, essentially ruling out Maris's. Repeat plasma free and total metanephrines and normetanephrines are still pending at the time of discharge. In addition, a 24-hour urine collection for metanephrines, norepinephrine, epinephrine, dopamine, and aldosterone are also pending. Her TSH was normal. Her diltiazem dose was increased to twice daily and this improved her episodic tachycardia with no further episodes of tachycardia. Her blood pressu re was slowly reduced and she is normotensive on the day of discharge at 123/63. She is continued on her outpatient lisinopril dosing, and as above, her diltiazem dose was doubled to twice daily. At this point, it is recommended she follow up with the endocrine clinic at the [place] for furthe r evaluation to consider if this pituitary microadenoma is clinically significant or not, and also co nsider further workup for possible ectopic pheochromocytoma. Pending studies at discharge as above. Plasma total free metanephrines, as well as 24-hour urine, co rtisol, metanephrines, normetanephrine, epinephrine, norepinephrine, dopamine, aldosterone. DISPOSITION: Patient is discharged home in stable condition. FOLLOWUP: 1. Dr. Tiago Gauthier, who will refer the patient to the [place] end[facility] clinic. 2. Primary care. DISCHARGE MEDICATIONS: Please see [facility] for complete admission medication list, all other outpati ent medications as previously prescribed. Changed medications include diltiazem CD 120 mg, which was increased to 1 tablet p.o. twice daily, #6 0, no refills. /[id number]/MODL
--- NOTE | 2017-08-11 23:32 | GDS ---
[f rep st] DISCHARGE SUMMARY DISCHARGE DIAGNOSES: 1. Hypertensive urgency, resolved. 2. Episodic tachycardia. 3. Hyponatremia, improved. 4. Bipolar disorder, stable. CONSULTANTS: None. IMAGING STUDIES/PROCEDURES: 1. Brain MRI on August 09, 2017, showed a 2.6 mm area of diminished enhancement involving the right side of the pituitary gland, associated with slight increase in volume of the right pituitary lobe, suspicious for a small pituitary microadenoma. 2. Abdominal MRI with adrenal protocol showed no visible etiology for the patient's labile blood pre ssure. HISTORY: For details, please see the History and Physical dated August 09, 2017. In brief, the april davies is a 67-year-old female with a history of hypertension and bipolar disorder with depressive symp toms, who presented to the emergency department with an episode of tremors, palpitations, shortness o f breath, and nausea. She has been having similar intermittent episodes over the past 3 years, and s he states they have become progressively worse. 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 In the outpatient setting, a 24-hour urine sample was collected, which showed a mildly elevated ACTH level and elevated metanephrines with normal cortisol and concern arose for [place]'s. She was admit prema to the hospital for further evaluation. HOSPITAL COURSE: The patient was admitted to the med/surg unit. A brain MRI revealed a 2.6 mm pitui tary microadenoma. It is unclear if this is secretory or nonsecretory. This case was discussed with Dr. Gauthier, who notes usually 1-2 mm pituitary adenomas are not problematic. An abdominal MRI with adrenal protocol was negative. She underwent a dexamethasone suppression test with 1 mg of dexametha sone, and she appropriately suppressed with the morning cortisol level of 1.5, essentially ruling out Maris's. Repeat plasma free and total metanephrines and normetanephrines are still pending at the time of discharge. In addition, a 24-hour urine collection for metanephrines, norepinephrine, epinephrine, dopamine, and aldosterone are also pending. Her TSH was normal. Her diltiazem dose was increased to twice daily and this improved her episodic tachycardia with no further episodes of tachycardia. Her blood pressu re was slowly reduced and she is normotensive on the day of discharge at 123/63. She is continued on her outpatient lisinopril dosing, and as above, her diltiazem dose was doubled to twice daily. At this point, it is recommended she follow up with the endocrine clinic at the [place] for furthe r evaluation to consider if this pituitary microadenoma is clinically significant or not, and also co nsider further workup for possible ectopic pheochromocytoma. Pending studies at discharge as above. Plasma total free metanephrines, as well as 24-hour urine, co rtisol, metanephrines, normetanephrine, epinephrine, norepinephrine, dopamine, aldosterone. DISPOSITION: Patient is discharged home in stable condition. FOLLOWUP: 1. Dr. Tiago Gauthier, who will refer the patient to the [place] endocr[facility] clinic. 2. Primary care. DISCHARGE MEDICATIONS: Please see [email or web address] for complete admission medication list, all other outpati ent medications as previously prescribed. Changed medications include diltiazem CD 120 mg, which was increased to 1 tablet p.o. twice daily, #6 0, no refills. /[id number]/MODL
--- NOTE | 2017-08-11 23:32 | GDS ---
[f rep st] DISCHARGE SUMMARY DISCHARGE DIAGNOSES: 1. Hypertensive urgency, resolved. 2. Episodic tachycardia. 3. Hyponatremia, improved. 4. Bipolar disorder, stable. CONSULTANTS: None. IMAGING STUDIES/PROCEDURES: 1. Brain MRI on August 09, 2017, showed a 2.6 mm area of diminished enhancement involving the right side of the pituitary gland, associated with slight increase in volume of the right pituitary lobe, suspicious for a small pituitary microadenoma. 2. Abdominal MRI with adrenal protocol showed no visible etiology for the patient's labile blood pre ssure. HISTORY: For details, please see the History and Physical dated August 09, 2017. In brief, the april davies is a 67-year-old female with a history of hypertension and bipolar disorder with depressive symp toms, who presented to the emergency department with an episode of tremors, palpitations, shortness o f breath, and nausea. She has been having similar intermittent episodes over the past 3 years, and s he states they have become progressively worse. 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 In the outpatient setting, a 24-hour urine sample was collected, which showed a mildly elevated ACTH level and elevated metanephrines with normal cortisol and concern arose for [place]'s. She was admit prema to the hospital for further evaluation. HOSPITAL COURSE: The patient was admitted to the med/surg unit. A brain MRI revealed a 2.6 mm pitui tary microadenoma. It is unclear if this is secretory or nonsecretory. This case was discussed with Dr. Gauthier, who notes usually 1-2 mm pituitary adenomas are not problematic. An abdominal MRI with adrenal protocol was negative. She underwent a dexamethasone suppression test with 1 mg of dexametha sone, and she appropriately suppressed with the morning cortisol level of 1.5, essentially ruling out Maris's. Repeat plasma free and total metanephrines and normetanephrines are still pending at the time of discharge. In addition, a 24-hour urine collection for metanephrines, norepinephrine, epinephrine, dopamine, and aldosterone are also pending. Her TSH was normal. Her diltiazem dose was increased to twice daily and this improved her episodic tachycardia with no further episodes of tachycardia. Her blood pressu re was slowly reduced and she is normotensive on the day of discharge at 123/63. She is continued on her outpatient lisinopril dosing, and as above, her diltiazem dose was doubled to twice daily. At this point, it is recommended she follow up with the endocrine clinic at the [place] for furthe r evaluation to consider if this pituitary microadenoma is clinically significant or not, and also co nsider further workup for possible ectopic pheochromocytoma. Pending studies at discharge as above. Plasma total free metanephrines, as well as 24-hour urine, co rtisol, metanephrines, normetanephrine, epinephrine, norepinephrine, dopamine, aldosterone. DISPOSITION: Patient is discharged home in stable condition. FOLLOWUP: 1. Dr. Tiago Gauthier, who will refer the patient to the [place] endocrinology clinic. 2. Primary care. DISCHARGE MEDICATIONS: Please see [facility] for complete admission medication list, all other outpati ent medications as previously prescribed. Changed medications include diltiazem CD 120 mg, which was increased to 1 tablet p.o. twice daily, #6 0, no refills. /[id number]/MODL
== END 2017-08-11 12:56 | disposition home or self-care (01) | DRG 305 ==
LOC: F3E 16:06 → OBSVTOIN 08-10 12:12
PROVIDERS: ADMIT Internal Medicine; ATTEND Internal Medicine
DX: I16.0 Hypertensive urgency (principal); F31.81 Bipolar II disorder; E87.1 Hypo-osmolality and hyponatremia; D35.2 Benign neoplasm of pituitary gland; R00.0 Tachycardia, unspecified; Z87.891 Personal history of nicotine dependence
CPT/HCPCS: 82088-90; 82384-90; 82530-90; 83835-90; 97162-GP; A9585; G0378; G8978-GP-CI; G8979-GP-CI

== ENCOUNTER 2017-11-01 20:32 | Inpatient (IN) | payer OTHER, MEDICARE ==
--- NOTE | 2017-11-01 21:00 | CPEKG ---
Heart Rate: 100 RR Interval: 600 P-R Interval: 200 QRSD Interval: 100 QT Interval: 356 QTC Interval: 460 P [place]: 67 QRS [place]: 4 T Wave [place]: 21 EKG Severity - BORDERLINE ECG - EKG Impression: SINUS TACHYCARDIA EKG Impression: BORDERLINE T WAVE ABNORMALITIES Electronically Signed By: Jason Bender 03-Nov-2017 09:39:00
--- NOTE | 2017-11-01 21:55 | EDPHY ---
H & P Time Seen by Provider: 11/01/17 21:39 HPI/ROS: CHIEF COMPLAINT: Palpitations, hypertension HISTORY OF PRESENT ILLNESS: The patient is a 67-year-old female who presents emergency department with blood pressure spikes and palpitations. 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 She has been worked up for pheochromocytoma but they have not made a definitive diagnosis. She currently takes both lisinopril and diltiazem. She recently increased her diltiazem to 120 mg twice daily. When she developed her symptoms this evening she took her regular dose of both lisinopril and diltiazem. She states that she has intermittent palpitations. She also notes a slight tremor. This occurs when she has her symptoms. She has been admitted to [facility] multiple times in the past for similar symptoms and hypertensive urgency. She has no chest pain or shortness of breath. No headache. No focal weakness or numbness. REVIEW OF SYSTEMS: My complete review of systems is negative except as mentioned in the HPI. Past Medical/Surgical History: Includes hypertensive urgency, episodic tachycardia, hyponatremia, bipolar disorder, possible pheochromocytoma, pulmonary av malformation, pituitary adenoma, bowel obstruction Past surgical history: Appendectomy Social history: The patient is . She does not smoke. Smoking Status: Former smoker Physical Exam: 37.2, 188/102, 114, 18, 94% on room air GENERAL: Well-appearing, in no acute distress, alert. HEENT: Eyes normal to inspection, normal pharynx, no signs of dehydration. NECK: [No thyromegaly, no lymphadenopathy, supple. RESPIRATORY: Clear to auscultation bilaterally, no rales, rhonchi or wheezing. CVS: Regular rhythm tachycardia, no rubs, murmurs, or gallops. ABDOMEN: Soft, nontender, nondistended, no organomegaly. BACK: Normal to inspection, no CVA tenderness. SKIN: Normal color, no rash, warm, dry. No pallor. EXTREMITIES: No pedal edema, no calf tenderness, no Homans sign or cords, no joint swelling. NEURO/PSYCH: Higher functions: Alert and Oriented x3. Normal speech and cognition. Normal mood and affect. Cranial nerves: Normal as tested. Cerebellar: Normal as tested. Good finger to nose, good [id number], normal gait. Peripheral exam: Normal motor exam. Normal sensation. Constitutional: Initial Vital Signs Temperature (C) 37.2 C 11/01/17 20:42 Heart Rate 114 H 11/01/17 20:42 Respiratory Rate 18 11/01/17 20:42 Blood Pressure 188/102 H 11/01/17 20:42 O2 Sat (%) 94 11/01/17 20:42 O2 Delivery Mode Room Air Allergies/Adverse Reactions: Penicillins Allergy (Verified 08/09/17 12:33) Home Medications: Medication Instructions Recorded Aspirin [Aspirin 81mg (*)] 81 mg PO DAILY 08/09/17 Lisinopril [Zestril 20 mg (*)] 20 mg PO BID 08/09/17 Omeprazole [Prilosec 20 mg] 20 mg PO HS 08/09/17 PARoxetine HCL [Paroxetine Cr] 37.5 mg PO HS 08/09/17 Simvastatin [Zocor] 20 mg PO HS 08/09/17 ZOLPIDEM TARTRATE [Ambien CR 12.5 12.5 mg PO HS 08/09/17 mg] lamoTRIgine [Lamictal] 300 mg PO HS 08/09/17 Diltiazem Cd [Cardizem ER 120 MG 120 mg PO BID #60 cap 08/11/17 (*)] Medical Decision Making ED Course/Re-evaluation: In the emergency department I discussed possible etiologies with the patient. I answered all her questions. I reviewed the patient's previous medical record. The repeat blood pressure was 186/85. EKG shows normal sinus tachycardia 100, normal axis, normal intervals]. There are no ST or T-wave abnormalities. CBC is notable for a hematocrit of 37. Chemistry panel showed a slightly low sodium 134. Potassium 4.4. Chloride low at 96. Carbon dioxide low at 21. Anion gap elevated at 17. Creatinine 0.8. I discussed case with Dr. Benson. She will accept the patient. Differential Diagnosis: My differential includes but is not limited to hypertensive urgency, hypertensive emergency, pheochromocytoma, tachycardia, electrolyte abnormality, sugar abnormality, dysrhythmia - Data Points Laboratory Results: Laboratory Results 11/01/17 21:06 11/01/17 21:06 11/01/17 11/01/17 11/01/17 21:06 21:06 21:06 WBC 7.95 10^3/uL 10^3/uL (3.80-9.50) RBC 4.20 10^6/uL 10^6/uL (4.18-5.33) Hgb 12.9 g/dL g/dL (12.6-16.3) Hct 37.0 % L % (38.0-47.0) MCV 88.1 fL fL (81.5-99.8) MCH 30.7 pg pg (27.9-34.1) MCHC 34.9 g/dL g/dL (32.4-36.7) RDW 11.9 % % (11.5-15.2) Plt Count 344 10^3/uL 10^3/uL (150-400) MPV 9.0 fL fL (8.7-11.7) Neut % (Auto) 71.4 % % (39.3-74.2) Lymph % (Auto) 19.5 % % (15.0-45.0) [place] % (Auto) 6.7 % % (4.5-13.0) Eos % (Auto) 1.3 % % (0.6-7.6) Baso % (Auto) 0.6 % % (0.3-1.7) Nucleat RBC Rel Count 0.0 % % (0.0-0.2) Absolute Neuts (auto) 5.68 10^3/uL 10^3/uL (1.70-6.50) Absolute Lymphs (auto) 1.55 10^3/uL 10^3/uL (1.00-3.00) Absolute Monos (auto) 0.53 10^3/uL 10^3/uL (0.30-0.80) Absolute Eos (auto) 0.10 10^3/uL 10^3/uL (0.03-0.40) Absolute Basos (auto) 0.05 10^3/uL 10^3/uL (0.02-0.10) Absolute Nucleated RBC 0.00 10^3/uL 10^3/uL (0-0.01) Immature Gran % 0.5 % % (0.0-1.1) Immature Gran # 0.04 10^3/uL 10^3/uL (0.00-0.10) PT 12.3 SEC SEC (12.0-15.0) INR 0.89 (0.83-1.16) APTT 24.2 SEC SEC (23.0-38.0) Sodium 134 mEq/L L mEq/L (135-145) Potassium 4.4 mEq/L mEq/L (3.5-5.2) Chloride 96 mEq/L L mEq/L (97-110) Carbon Dioxide 21 mEq/l L mEq/l (22-31) Anion Gap 17 mEq/L H mEq/L (8-16) BUN 13 mg/dL mg/dL (7-23) Creatinine 0.8 mg/dL mg/dL (0.6-1.0) Estimated GFR > 60 Glucose 111 mg/dL H mg/dL (70-100) Calcium 10.1 mg/dL mg/dL (8.5-10.4) Troponin I Pending Departure - Departure Disposition: [facility] Inpatient Acute Clinical Impression: Tachycardia, Heart palpitations Hypertension Qualifiers: Hypertension type: unspecified Qualified Code(s): I10 - Essential (primary) hypertension Condition: Good Referrals: Frannie Rosario [Primary Care Provider] - As per Instructions
[2017-11-01 22:08] LABS: PLATELET COUNT 344 10^3/uL (150-400)
[2017-11-01 22:13] LABS: INR 0.89 (0.83-1.16); PROTIME(PATIENT) 12.3 SEC (12.0-15.0)
[2017-11-01] MEDS ORDERED: ONDANSETRON 4 MG/2 ML VIAL IVP PRN (22:58)
[2017-11-01] MEDS ORDERED: LORazepam 2 MG/ML INJ IVP PRN (23:00)
[2017-11-01] MEDS ORDERED: NS 1,000 ML IV SCH (23:00)
[2017-11-01] MEDS ORDERED: HYDROCODONE/APAP 5/325 TAB PO PRN (23:00)
[2017-11-01] MEDS ORDERED: ACETAMINOPHEN 325 MG TAB PO PRN (23:00)
[2017-11-01] MEDS ORDERED: ONDANSETRON 4 MG/2 ML VIAL IVP ONE (23:07)
[2017-11-01] MEDS ORDERED: DILTIAZEM 25 MG/5 ML VIAL IVP ONE (23:15)
--- NOTE | 2017-11-01 23:20 | PDGENHP ---
History and Physical - Chief Complaint tremors, high blood pressure - History of Present Illness Source - patient provides history and appears reliable. EMR reviewed and case discussed with ED provider. CC - tremors. high blood pressure. HPI - Pleasant 67 yo F with pmhx significant for HTN, bipolar 2 disorder with depressive symptoms and more recent hospitalization for hypertensive urgency with concerns for elevated urinary metanephrines. Patient was hospitalized early August 2017 for full the patient. She had poor oral borderline elevated urinary metanephrines and also was found on brain MRI to have a 2.6 mm pituitary microadenoma, a negative adrenal MRI. Patient was not given a formal diagnosis of pheochromocytoma, she was evaluated outpatient with Dr. Gauthier and referred to [facility] for further evaluation. Patient was discharged with diltiazem 120 mg ER twice daily and lisinopril for blood pressure control. Repeat urinary studies were completed and patient again with slightly elevated metanephrine and patient is still awaiting final diagnosis. Additionally, patient had a full cardiac workup including echo, cardiac cath, monitoring that was negative for any evidence of occlusive disease or arrhythmias. Patient also had renal imaging that was significant for less than 50% stenosis of the left renal artery. Augustina has continued to have intermittent episodes of tremors, diaphoresis, nausea with associated rise in blood pressure. Today patient experienced an exacerbation of her symptoms similarly as above. Today patient presented to the emergency department with concerns for hypertensive urgency. Her systolic blood pressure was in the 180s and diastolic in the low 100s. Patient did take a her evening dose of diltiazem and lisinopril but given how unwell she felt she presented to the emergency department for evaluation. In the emergency department patient was experiencing tremors and diaphoresis. She denied any chest pain or shortness of breath. She was monitored given she had just taken her evening dose of antihypertensives with stable blood pressures until she walked back from the bathroom and had an acute rise in heart rate to the 1 teens and elevated blood pressure in the 210s/110s. Patient developed significant nausea diaphoresis which did improve after doses Zofran. Patient's blood pressures did decline without intervention into the systolic or 160s. History Information - Allergies/Home Medication List Allergies/Adverse Reactions: Penicillins Allergy (Verified 08/09/17 12:33) Home Medications: Aspirin [Aspirin 81mg (*)] 81 mg PO DAILY 08/09/17 [Last Taken 08/09/17] Lisinopril [Zestril 20 mg (*)] 20 mg PO BID 08/09/17 [Last Taken 08/09/17] Omeprazole [Prilosec 20 mg] 20 mg PO HS 08/09/17 [Last Taken 08/08/17] PARoxetine HCL [Paroxetine Cr] 37.5 mg PO HS 08/09/17 [Last Taken 08/08/17] Simvastatin [Zocor] 20 mg PO HS 08/09/17 [Last Taken 08/08/17] ZOLPIDEM TARTRATE [Ambien CR 12.5 mg] 12.5 mg PO HS 08/09/17 [Last Taken ] lamoTRIgine [Lamictal] 300 mg PO HS 08/09/17 [Last Taken Unknown] I have personally reviewed and updated: family history, medical history, social history, surgical history - Past Medical History hypertension (Reportedly labile, diagnosed 3 and half years ago) Additional medical history: Bipolar disorder type 2 with depressive symptoms. Recurrent small bowel obstructions. Elevated urinary metanephrines without diagnosis of pheochromocytoma (normal adrenal MRI). 2.6 mm pituitary microadenoma - Surgical History Additional surgical history: Small-bowel obstruction with resection. Appendectomy. 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 Patient is lives with her . Review of Systems Review of Systems: ROS: 10pt was reviewed & negative except for what was stated in HPI & below Constitutional: Reports: diaphoresis (With episode of tremor). Denies: chills, fever EENMT: Reports: no symptoms Cardiac: Reports: palpitations Respiratory: Reports: shortness of breath (With episode) Gastrointestinal: Reports: nausea. Denies: vomitting, diarrhea Genitourinary: Reports: no symptoms Neurological: Reports: anxiety, tremors Physical Exam Physical Exam: Temp Pulse Resp BP Pulse Ox 37.2 C 102 H 18 161/90 H 97 11/01/17 20:42 11/01/17 22:59 11/01/17 22:59 11/01/17 22:59 11/01/17 22:59 Selected Entries 11/01/17 11/01/17 20:42 23:23 Blood Pressure Automatic Method Heart Rate 114 H 90 Respiratory 18 18 Rate O2 Sat (%) 94 96 Temperature (C) 37.2 C Blood Pressure 188/102 H 160/89 H Mean Arterial 130 H 112 H Pressure (MAP) O2 Delivery Room Air Room Air Mode Temperature Oral Source Constitutional: appears nourished, uncomfortable, other (Upon initial evaluation at bedside patient appeared in mild distress, tremulous, diaphoretic and anxious.) Eyes: PERRL, EOMI (Grossly intact), No pale conjunctiva Ears, Nose, Mouth, Throat: dry mucous membranes, other (No nasal discharge) Cardiovascular: pulses symmetric bilaterally, tachycardia (Regular rhythm), No edema Peripheral Pulses: 1+: dorsalis-pedis (R), dorsalis-pedis (L) Respiratory: no respiratory distress, clear to auscultation, No expiratory wheeze, No inspiratory crackles Gastrointestinal: normoactive bowel sounds, soft, non-tender abdomen, no palpable masses, No tenderness, No distension Genitourinary: no bladder tenderness, No mena in urethra Skin: warm, no rashes or abrasions, other (Pallor, diaphoretic) Musculoskeletal: generalized weakness (Patient tremulous limiting exam) Neurologic: AAOx3, other (Moves all extremities, grossly nonfocal), No facial droop Psychiatric: anxious, other (Patient appears to feel unwell), No depressed Lab Data & Imaging Review 11/01/17 21:06 11/01/17 21:06 WBC 7.95 10^3/uL (3.80-9.50) 11/01/17 21:06 RBC 4.20 10^6/uL (4.18-5.33) 11/01/17 21:06 Hgb 12.9 g/dL (12.6-16.3) 11/01/17 21:06 Hct 37.0 % (38.0-47.0) L 11/01/17 21:06 MCV 88.1 fL (81.5-99.8) 11/01/17 21:06 MCH 30.7 pg (27.9-34.1) 11/01/17 21:06 MCHC 34.9 g/dL (32.4-36.7) 11/01/17 21:06 RDW 11.9 % (11.5-15.2) 11/01/17 21:06 Plt Count 344 10^3/uL (150-400) 11/01/17 21:06 MPV 9.0 fL (8.7-11.7) 11/01/17 21:06 Neut % (Auto) 71.4 % (39.3-74.2) 11/01/17 21:06 Lymph % (Auto) 19.5 % (15.0-45.0) 11/01/17 21:06 [place] % (Auto) 6.7 % (4.5-13.0) 11/01/17 21:06 Eos % (Auto) 1.3 % (0.6-7.6) 11/01/17 21:06 Baso % (Auto) 0.6 % (0.3-1.7) 11/01/17 21:06 Nucleat RBC Rel Count 0.0 % (0.0-0.2) 11/01/17 21:06 Absolute Neuts (auto) 5.68 10^3/uL (1.70-6.50) 11/01/17 21:06 Absolute Lymphs (auto) 1.55 10^3/uL (1.00-3.00) 11/01/17 21:06 Absolute Monos (auto) 0.53 10^3/uL (0.30-0.80) 11/01/17 21:06 Absolute Eos (auto) 0.10 10^3/uL (0.03-0.40) 11/01/17 21:06 Absolute Basos (auto) 0.05 10^3/uL (0.02-0.10) 11/01/17 21:06 Absolute Nucleated RBC 0.00 10^3/uL (0-0.01) 11/01/17 21:06 Immature Gran % 0.5 % (0.0-1.1) 11/01/17 21:06 Immature Gran # 0.04 10^3/uL (0.00-0.10) 11/01/17 21:06 PT 12.3 SEC (12.0-15.0) 11/01/17 21:06 INR 0.89 (0.83-1.16) 11/01/17 21:06 APTT 24.2 SEC (23.0-38.0) 11/01/17 21:06 Sodium 134 mEq/L (135-145) L 11/01/17 21:06 Potassium 4.4 mEq/L (3.5-5.2) 11/01/17 21:06 Chloride 96 mEq/L (97-110) L 11/01/17 21:06 Carbon Dioxide 21 mEq/l (22-31) L 11/01/17 21:06 Anion Gap 17 mEq/L (8-16) H 11/01/17 21:06 BUN 13 mg/dL (7-23) 11/01/17 21:06 Creatinine 0.8 mg/dL (0.6-1.0) 11/01/17 21:06 Estimated GFR > 60 11/01/17 21:06 Glucose 111 mg/dL (70-100) H 11/01/17 21:06 Calcium 10.1 mg/dL (8.5-10.4) 11/01/17 21:06 Troponin I < 0.012 ng/mL (0.000-0.034) 11/01/17 21:06 EKG additional interpertation: Sinus tachycardia in the [address] changes. QTC 460 Assessment & Plan Assessment: Assessment plan: Pleasant 67-year-old female with a history of intermittent episodes of hypertensive urgency palpitations tremor in process of workup for possible pheochromocytoma which at this point significant for elevated urine metanephrines with negative adrenal imaging, positive microadenoma who presents emergency department today with complaints of tremor, palpitations and elevated blood pressure. #Accelerated hypertension - patient's blood pressures are stable in the 180s. Patient did take her evening dose of diltiazem and lisinopril just prior to arrival in the emergency department. Patient initially monitored to see the effectiveness of this evening dose. Patient subsequently ambulated to the restroom and upon return developed exacerbation of her constellation of symptoms including tremor, anxiety, nausea, shortness of breath, palpitations with associated rise in blood pressure and tachycardia. Patient received a dose of Zofran and a dose of diltiazem was ordered however she did not receive as her blood pressures and heart rate did improve without any intervention. Patient's evaluation for possible pheochromocytoma remains in process. Previous studies were completed in August 2017 as listed in HPI. At this point will avoid beta-blockers if patient's usual meds are controlling her symptoms at this time. If additional antihypertensives become necessary will consider initiation of alpha-andrew given concern for possible pheochromocytoma. 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 #Tachycardia-improved see above #Palpitations - symptoms improved with resolution of her tachycardia. No evidence of arrhythmia. Patient with previous cardiac evaluation. #Hyponatremia-minimally decreased patient with previous urine studies but does appear slightly dry. Will supply some gentle hydration overnight and repeat BMP in the a.m.. #Hypochloridemia-in setting of hyponatremia plan as above. #Mildly increased anion gap-IV fluids repeat BMP in the morning. Renal function within normal limits. FEN - IV fluids overnight for gentle hydration. Electrolyte replacement p.r.n. as above. Advance diet as tolerated in setting of nausea. PPx-SCDs. Lovenox if patient should stay additional day. Core-full Disposition-patient mid observation on PCU for closer monitoring of her blood pressures at this time.
[2017-11-02] MEDS ORDERED: ZOLPIDEM TARTRATE 5 MG TAB PO PRN (00:47)
[2017-11-02 04:43] LABS: PLATELET COUNT 325 10^3/uL (150-400)
[2017-11-02] MEDS ORDERED: LISINOPRIL 20 MG TAB PO SCH ×2 (09:00→11:30)
[2017-11-02] MEDS ORDERED: DILTIAZEM CD 120 MG CAP PO SCH ×2 (09:00→11:30)
[2017-11-02] MEDS: ENOXAPARIN 40 MG/0.4 ML SYR SC SCH (10:57)
[2017-11-02] MEDS ORDERED: DOCUSATE SODIUM 100 MG CAP PO PRN (11:18)
[2017-11-02] MEDS ORDERED: NON-FORMULARY NEW DRUG (Omeprazole [Prilosec 20 Mg] 20 MG) PO SCH (11:30)
[2017-11-02] MEDS ORDERED: NON-FORMULARY NEW DRUG (Simvastatin [Zocor] 20 MG) PO SCH (11:30)
[2017-11-02] MEDS: ASPIRIN 81 MG CHEWABLE TAB PO SCH (11:53)
[2017-11-02] MEDS: PANTOPRAZOLE SODIUM 40 MG TAB PO SCH (11:53)
--- NOTE | 2017-11-02 16:31 | HOSPPROG ---
Hospitalist Progress Note Assessment/Plan: 67-year-old female admitted with chills shaking nervousness and uncontrolled hypertension. She has been undergoing on evaluation for possible pheochromocytoma with metanephrines at a borderline level. This evaluation has occurred through Dr. Turner sneed and at the [facility] and she is scheduled for re-evaluation in late November. She presented here hypertensive. Patient is new to me today -uncontrolled hypertension with normal renal arteries borderline elevated metanephrines and unknown 2.5 mm pituitary adenoma. She has no known secondary causes of hypertension at this time. The pheochromocytoma has not been confirmed. Today she continues with moderate hypertension and I will add Norvasc 2.5 mg to the regime. Rhythm has been stable in NSR. -bipolar 2 with depression. This is currently stable. The uncontrolled hypertension makes nervous and anxious. -status post recurrent SBO with prior resection. This is currently stable she is eating well and moving her bowels well. -disposition: Due to the uncontrolled hypertension the need for additional medication and monitoring the patient will require and a further overnight stay. She will be changed to inpatient status. Time: 40 min Subjective: Reports she continues to feel anxious somewhat nervous and a little shaky. Her blood pressure has been up and down in the course of the day. No complaints of chest pain or shortness of breath Objective: Vital Signs Temp Pulse Resp BP Pulse Ox 37.0 C 92 16 149/90 H 95 11/02/17 16:00 11/02/17 16:00 11/02/17 16:00 11/02/17 16:00 11/02/17 16:00 Laboratory Results 11/02/17 03:31 11/02/17 03:31 11/01/17 11/02/17 11/03/17 05:59 05:59 05:59 Intake Total 200 Output Total 300 Balance 200 -300 PT 12.3 SEC (12.0-15.0) 11/01/17 21:06 INR 0.89 (0.83-1.16) 11/01/17 21:06 - Time Spent With Patient Time Spent with Patient: greater than 35 minutes Time Spent with Patient: Greater than 35 minutes spent on this patients care, greater than 50% of time spent counseling, educating, and coordinating care regarding the above mentioned plan. - Pending Discharge Pending Discharge Within 24 Hours: Yes Pending Discharge Date: 11/03/17 Pending Discharge Time: 11:00 - Physical Exam Constitutional: no apparent distress Eyes: PERRL, anicteric sclera Ears, Nose, Mouth, Throat: moist mucous membranes, hearing normal Cardiovascular: regular rate and rhythym, no murmur, rub, or gallop, other ( Rhythm is NSR on the monitor to my read) Respiratory: no respiratory distress, no rales or rhonchi, clear to auscultation Gastrointestinal: normoactive bowel sounds, soft, non-tender abdomen, no palpable masses Genitourinary: no bladder fullness Skin: warm Musculoskeletal: full muscle strength Neurologic: AAOx3, CN II-XII Intact, other (Slight resting tremor is noted) Psychiatric: interacting appropriately ICD10 Worksheet Patient Problems: Problems Problem Status Onset Hypertensive urgency Acute Hypertension Acute Tachycardia Acute Heart palpitations Acute
--- NOTE | 2017-11-02 16:49 | PDMN ---
Medical Necessity Medical necessity: C/M review: est. > 2 MN LOS for eval and TX of acute and uncontrolled hypertension with normal renal arteries, borderline metanepherines and unknown 2.5 mm pituitary adenoma, chills, shaking nervousness, requiring ongoing cardiac monitoring, pulse oximetry, antihypertensive medication regimen adjustment and titration, comorbid history of undergoing recent evaluation for possible pheochromocytoma with metanephrines at a borderline level and scheduled for re-evaluation in late 11/2017, bipolar 2 with depression, S/P recurrent SBO with prior resection per 11/02/2017 Hospitalist progress note.
[2017-11-02] MEDS ORDERED: NON-FORMULARY NEW DRUG (Zolpidem Tartrate [Ambien Cr 12.5 Mg] 12.5 MG) PO SCH (21:00)
[2017-11-02] MEDS ORDERED: NON-FORMULARY NEW DRUG (Lamotrigine [Lamictal] 300 MG) PO SCH (21:00)
[2017-11-02] MEDS ORDERED: PAROXETINE HCL 37.5 MG PO SCH (21:00)
[2017-11-02] MEDS ORDERED: ATORVASTATIN CALCIUM 10 MG TAB PO SCH (21:00)
[2017-11-02] MEDS ORDERED: lamoTRIgine 100 MG TAB PO SCH (21:00)
[2017-11-02] MEDS ORDERED: ZOLPIDEM TARTRATE 5 MG TAB PO SCH (21:00)
[2017-11-02] MEDS ORDERED: PARoxetine CR 12.5 MG TAB PO SCH (21:00)
[2017-11-02] MEDS: LISINOPRIL 20 MG TAB PO SCH (21:11)
[2017-11-02] MEDS: DILTIAZEM CD 120 MG CAP PO SCH (21:11)
[2017-11-03 04:24] LABS: PLATELET COUNT 288 10^3/uL (150-400)
[2017-11-03] MEDS: DILTIAZEM CD 120 MG CAP PO SCH (08:45)
[2017-11-03] MEDS: ASPIRIN 81 MG CHEWABLE TAB PO SCH (08:46)
[2017-11-03] MEDS: PANTOPRAZOLE SODIUM 40 MG TAB PO SCH (08:47)
[2017-11-03] MEDS: LISINOPRIL 20 MG TAB PO SCH (08:47)
[2017-11-03] MEDS: ENOXAPARIN 40 MG/0.4 ML SYR SC SCH (08:47)
[2017-11-03] MEDS ORDERED: PNEUMOC 13-VAL CONJ-DIP CRM/PF 0.5 ML SYR IM ONE (08:51)
[2017-11-03 11:24] VITALS: RESP 18; TEMP 99; O2SAT 93
[2017-11-03 11:54] VITALS: PULSE 100
[2017-11-03 13:02] VITALS: BP 152/88
--- NOTE | 2017-11-03 15:24 | ASDISCHSUM ---
Discharge Information Plan Status: Medically Cleared to Leave: Discharge Date:11/03/2017 02:55 PM CM D/C Disposition: ADT D/C Disposition:Home, Routine, Self-Care Projected Discharge Date:11/03/2017 02:55 PM Transportation at D/C: Discharge Delay Reason: Follow-Up Date:11/03/2017 02:55 PM Discharge Slot: Final Diagnosis: Placement Information Patient Contact Information Contact Name:PETERSON Relationship: Address:[address] Work Phone: City:[place] Phone: State/Zip Code:[place] [address] Email: Financial Information Financial Class: Primary Plan Desc:MEDICARE OUTPATIENT Primary Plan Number:[id number] Secondary Plan Desc:[employer]/MDR SUPPLEMENT Secondary Plan Number:[id number] Assessment Information BC CM Progress Note CM Note CM Note Notes: Pt to DC today with no DC needs. Date Signed: 11/03/2017 03:23 PM Electronically Signed By:Zandra Renae LCSW Intervention Information [facility] Date of Service:11/01/2017 11:00 PM Patient Type:Inpatient Staff Member:DANIELLE Yan Shelly Hours:0.25 Discipline: Severity:1 (0-1 Hours) Comment:[facility] 73 for 11/01/2017 23:00 to 18 16:32 as patient discharged 11/03/2017 13:53 (< 2 MN LOS after parient admission status changed form observation to inpatient) .
--- NOTE | 2017-11-03 17:50 | GDS ---
[f rep st] DISCHARGE SUMMARY ACUTE DIAGNOSES: 1. Acute uncontrolled hypertension. 2. Possible secondary cause of hypertension with borderline elevated metanephrines on outside evalua tion. 3. Bipolar disorder with depression. CONSULTATION: None. PROCEDURES: None. HOSPITAL COURSE: This is a 67-year-old female who is undergoing evaluation for secondary causes of h ypertension, admitted with severe hypertension, shaking and weakness. She was noted on admission to have significantly elevated pressure, 212/98, which was difficult to control. Her regular medication s were reinstituted gently. She had spikes of hypertension, and Norvasc 2.5 mg was added which developed good, stable control. S he felt improved. DISCHARGE MEDICATIONS: New medication is amlodipine 2.5 mg daily. Continued medications are diltiaz em 120 mg ER tablet to be taken twice daily, lisinopril 20 mg twice daily, Ambien 12.5 mg at bedtime, Zocor 20 mg daily, paroxetine 37.5 mg daily, Prilosec 20 mg daily, aspirin 81 mg daily, Lamictal 300 mg p.o. at bedtime, Colace. PLAN: The patient will contact Dr. Rosario, her PCP, in 1-2 days. She has a blood pressure cuff at home and will be taking her medication as prescribed and reporting her blood pressure to Dr. Katelin alegria. TIME: This discharge required 40 minutes, greater than 50% to developmental training counselor and coordinate care. /[id number]/MODL
== END 2017-11-03 14:55 | disposition home or self-care (01) | DRG 305 ==
LOC: F2W 11-02 00:04 → OBSVTOIN 11-02 16:32
PROVIDERS: ADMIT Family Medicine; ATTEND Family Medicine
DX: I10 Essential (primary) hypertension (principal); F31.9 Bipolar disorder, unspecified; Z23 Encounter for immunization; Z87.891 Personal history of nicotine dependence
CPT/HCPCS: G0009; G0378; J1650; J2405

== ENCOUNTER 2017-12-27 06:20 | Inpatient (IN) | payer OTHER, MEDICARE ==
[2017-12-27] MEDS ORDERED: ONDANSETRON 4 MG/2 ML VIAL ONE (06:42)
[2017-12-27] MEDS ORDERED: HYDROmorphONE/DILAUDID 2 MG/ML INJ ONE ×2 (06:42→10:15)
[2017-12-27] MEDS ORDERED: NS 1,000 ML IV ONE ×3 (06:46→10:06)
[2017-12-27] MEDS: ONDANSETRON 4 MG/2 ML VIAL IVP ONE ×2 (06:48→10:25)
[2017-12-27] MEDS: HYDROmorphONE/DILAUDID 2 MG/ML INJ IVP ONE ×2 (06:48→10:23)
[2017-12-27 06:50] LABS: PLATELET COUNT 316 10^3/uL (150-400)
[2017-12-27 06:59] LABS: INR 1.05 (0.83-1.16); PROTIME(PATIENT) 13.9 SEC (12.0-15.0)
--- NOTE | 2017-12-27 07:05 | EDPHY ---
H & P Stated Complaint: Bright red blood and clots in stool Time Seen by Provider: 12/27/17 07:04 HPI/ROS: CHIEF COMPLAINT: Hematochezia HISTORY OF PRESENT ILLNESS: The patient presents to the ED with a 1 day history of hematochezia and vomiting. The patient reportedly developed vomiting and nonbloody diarrhea which has progressed to hematochezia over the past 12 hr. The patient does take a baby aspirin. She reports prior history of bowel obstruction. The patient denies significant abdominal pain currently. The patient has no complaints of fever, cough or congestion. She denies dysuria or chest pain. The patient states she is feeling somewhat lightheaded in globally weak. REVIEW OF SYSTEMS: A comprehensive 10 point review of systems is otherwise negative aside from elements mentioned in the history of present illness. 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, bipolar - Social History Smoking Status: Former smoker - Physical Exam Exam: General Appearance: Alert, no distress Eyes: Pupils equal and round no pallor or injection ENT, Mouth: Mucous membranes moist Respiratory: There are no retractions, lungs are clear to auscultation Cardiovascular: Tachycardic Gastrointestinal: Abdomen is soft and nontender, no masses, bowel sounds normal Neurological: A&O, normal motor function, normal sensory exam, normal cranial nerves Skin: Warm and dry, no rashes Musculoskeletal: Neck is supple nontender Extremities: symmetrical, full range of motion Constitutional: Initial Vital Signs Temperature (C) 37.2 C 12/27/17 06:23 Heart Rate 107 H 12/27/17 06:23 Respiratory Rate 18 12/27/17 06:23 Blood Pressure 123/82 H 12/27/17 06:23 O2 Sat (%) 95 12/27/17 06:23 O2 Delivery Mode Room Air O2 (L/minute) 2 Allergies/Adverse Reactions: Penicillins Allergy (Verified 12/27/17 06:26) Rash Home Medications: Medication Instructions Recorded Lisinopril [Zestril 20 mg (*)] 20 mg PO DAILY 08/09/17 Omeprazole [Prilosec 20 mg] 20 mg PO DAILY 08/09/17 PARoxetine HCL [Paroxetine Cr] 37.5 mg PO HS 08/09/17 Simvastatin [Zocor] 20 mg PO HS 08/09/17 ZOLPIDEM TARTRATE [Ambien CR 12.5 12.5 mg PO HS 08/09/17 mg] amLODIPine BESYLATE [Norvasc 2.5 2.5 mg PO DAILY #30 tab 11/03/17 mg (*)] ALPRAZolam [Xanax 0.25 MG (*)] 0.25 mg PO DAILY PRN 12/27/17 Labetalol HCl [Trandate 200 mg (*)] 200 mg PO BID 12/27/17 Lisinopril [Zestril 40 mg (*)] 40 mg PO HS 12/27/17 lamoTRIgine [LamICTAL 100 MG (*)] 300 mg PO HS 12/27/17 Medical Decision Making ED Course/Re-evaluation: The patient presents to the ED with bloody diarrhea and 1 episode of vomiting. The patient has no prior history of diverticulitis but does have a history of bowel obstructions. The patient was noted to be hemodynamically stable upon arrival. The patient had an IV established and received 2 L of normal saline. Given her history of hematochezia and slight tachycardia she was taken for CT scan of the abdomen pelvis which demonstrates the possibility of a focal area of ischemic colitis. The patient is noted to have flow through her SMA and RAFA vessels on that study. The patient's stool has been sent for testing. A lactic acid was ordered by myself at 9:20 a.m. In the morning. The patient will be admitted to the hospital for further evaluation and resuscitation. Consultation was made with the hospitalist service. She will be admitted by Dr. Morales. The patient's venous lactate was elevated at 4.3 likely reflective of her ischemic colitis. The patient was given 1 g of IV Invanz. Given her elevated lactic acid I did consult with Dr. Pierre from General surgery at 10:00 a.m. Who will evaluate the patient. Differential Diagnosis: Differential diagnosis considered includes ischemic colitis, infectious colitis , Clostridium difficile colitis, perforation, obstruction, diverticulitis - Data Points Laboratory Results: Laboratory Results 12/27/17 06:40 12/27/17 06:40 12/27/17 12/27/17 12/27/17 06:40 06:40 06:40 WBC 13.10 10^3/uL H 10^3/uL (3.80-9.50) RBC 3.87 10^6/uL L 10^6/uL (4.18-5.33) Hgb 11.8 g/dL L g/dL (12.6-16.3) Hct 34.5 % L % (38.0-47.0) MCV 89.1 fL fL (81.5-99.8) MCH 30.5 pg pg (27.9-34.1) MCHC 34.2 g/dL g/dL (32.4-36.7) RDW 12.3 % % (11.5-15.2) Plt Count 316 10^3/uL 10^3/uL (150-400) MPV 8.6 fL L fL (8.7-11.7) Neut % (Auto) 92.7 % H % (39.3-74.2) Lymph % (Auto) 3.5 % L % (15.0-45.0) [place] % (Auto) 2.7 % L % (4.5-13.0) Eos % (Auto) 0.0 % L % (0.6-7.6) Baso % (Auto) 0.3 % % (0.3-1.7) Nucleat RBC Rel Count 0.0 % % (0.0-0.2) Absolute Neuts (auto) 12.15 10^3/uL H 10^3/uL (1.70-6.50) Absolute Lymphs (auto) 0.46 10^3/uL L 10^3/uL (1.00-3.00) Absolute Monos (auto) 0.35 10^3/uL 10^3/uL (0.30-0.80) Absolute Eos (auto) 0.00 10^3/uL L 10^3/uL (0.03-0.40) Absolute Basos (auto) 0.04 10^3/uL 10^3/uL (0.02-0.10) Absolute Nucleated RBC 0.00 10^3/uL 10^3/uL (0-0.01) Immature Gran % 0.8 % % (0.0-1.1) Immature Gran # 0.10 10^3/uL 10^3/uL (0.00-0.10) PT 13.9 SEC SEC (12.0-15.0) INR 1.05 (0.83-1.16) APTT 22.6 SEC L SEC (23.0-38.0) Sodium 132 mEq/L L mEq/L (135-145) Potassium 4.6 mEq/L mEq/L (3.5-5.2) Chloride 98 mEq/L mEq/L (97-110) Carbon Dioxide 16 mEq/l L mEq/l (22-31) Anion Gap 18 mEq/L H mEq/L (8-16) BUN 18 mg/dL mg/dL (7-23) Creatinine 0.7 mg/dL mg/dL (0.6-1.0) Estimated GFR > 60 Glucose 164 mg/dL H mg/dL (70-100) Calcium 9.1 mg/dL mg/dL (8.5-10.4) Total Bilirubin 0.4 mg/dL mg/dL (0.1-1.4) Conjugated Bilirubin 0.4 mg/dL mg/dL (0.0-0.5) Unconjugated Bilirubin 0.0 mg/dL mg/dL (0.0-1.1) AST 23 IU/L IU/L (14-46) ALT 19 IU/L IU/L (9-52) Alkaline Phosphatase 83 IU/L IU/L (38-126) Total Protein 7.0 g/dL g/dL (6.3-8.2) Albumin 4.2 g/dL g/dL (3.5-5.0) Lipase 59 IU/L IU/L (23-300) Medications Given: Discontinued Medications Hydromorphone HCl (Dilaudid) 0.5 mg IVP EDNOW ONE Stop: 12/27/17 06:47 Last Admin: 12/27/17 06:48 Dose: 0.5 mg Sodium Chloride (Ns) 1,000 mls @ 0 mls/hr IV ONCE ONE; Wide Open PRN Reason: Protocol Stop: 12/27/17 06:47 Last Admin: 12/27/17 06:48 Dose: 1,000 mls Ondansetron HCl (Zofran) 4 mg IVP EDNOW ONE Stop: 12/27/17 06:47 Last Admin: 12/27/17 06:48 Dose: 4 mg Departure - Departure Disposition: [facility] Inpatient Acute Clinical Impression: Colitis, Abdominal pain Condition: Fair
[2017-12-27] MEDS ORDERED: IOPAMIDOL (ISOVUE-300) 100 ML BTL ONE (08:01)
[2017-12-27] MEDS ORDERED: ACETAMINOPHEN 650 MG SUPP PR PRN (09:08)
[2017-12-27] MEDS ORDERED: HYDROmorphone HCL/NS 0.5 MG/ML SYR IVP PRN (09:08)
[2017-12-27] MEDS ORDERED: ERTAPENEM 1 GM VIAL IVP ONE (10:05)
[2017-12-27] MEDS ORDERED: HYDROmorphONE/DILAUDID 1 MG/ML INJ IVP PRN (10:18)
--- NOTE | 2017-12-27 10:50 | PDCONSULT ---
Apns Note: Chief complaint: Abdominal pain bloody diarrhea History of present illness: This is a 67-year-old woman has been admitted several times in the last few months for palpitations and hypertensive crises pheochromocytoma workup was negative she has recently started a new medication labetalol last night. Starting in the evening the patient began having crampy abdominal pain associated with nausea and vomiting. She had diarrhea which initially had no blood but later became bloody and then just clots. Her pain began in the periumbilical area and is now in the left lower quadrant. She has had previous laparotomy for bowel obstruction and previous open appendectomy years ago. She has had no GI problems in the recent past. She has had 2 colonoscopies which she was told were significant for irritable bowel syndrome Past medical history hypercholesterolemia, hypertension, palpitations, anxiety Past surgical history includes appendectomy in laparotomy for small bowel obstruction Allergies penicillin hives Medications at home include Zocor, labetalol and Xanax For family history significant for coronary artery disease no GI cancers Denies alcohol tobacco or illicit drug use Review of systems significant for her palpitations and hypertensive crises over the last several months this current episode of abdominal pain all others are reviewed and are negative Objective: The patient is alert she is in some distress because of her abdominal pain and anxiety Sclerae are anicteric pupils are equal reactive Trachea midline Mild right thyroid lobe enlargement No JVD. No supraclavicular cervical adenopathy Tachycardic regular rate Clear bilaterally Abdomen soft distended no peritoneal signs left lower quadrant mildly tender to palpation well-healed laparotomy scars midline and right lower quadrant no hernias no hepatosplenomegaly Extremities without edema Skin normal turgor and tone Normal affect 12/27/17 06:40 12/27/17 06:40 Total Bilirubin 0.4 mg/dL (0.1-1.4) 12/27/17 06:40 Conjugated Bilirubin 0.4 mg/dL (0.0-0.5) 12/27/17 06:40 Unconjugated Bilirubin 0.0 mg/dL (0.0-1.1) 12/27/17 06:40 AST 23 IU/L (14-46) 12/27/17 06:40 ALT 19 IU/L (9-52) 12/27/17 06:40 Venous lactate 4.[address] 12/27/17 07:54 Impression: 1. No evidence for diverticulitis. 2. Segment of the splenic flexure that is thickened, without surrounding inflammation. Ischemic colitis is a possibility in the setting of significant atherosclerotic disease of the abdominal aorta. 3. No free air or free fluid or fluid collection. Findings and recommendations discussed with Dr. Wade Correa at 0910 hours on December 27, 2017. Final report concurs with initial preliminary interpretation. CT scan personally reviewed she does have diverticulosis of the sigmoid colon no signs of vascular occlusion Impression/plan: ischemic colitis versus diverticular bleeding Recommend maximizing cardiac output with fluid and bowel rest Repeat laboratory studies this afternoon including CBC and Chem 7 GI consult for possible endoscopic management of lower GI bleed Options for surgical intervention it outlined with the patient and her they are in favor of conservative care initially all questions were addressed.
[2017-12-27] MEDS ORDERED: ERTAPENEM 1 GM VIAL ONE (10:51)
[2017-12-27] MEDS ORDERED: HYDROmorphONE/DILAUDID 2 MG/ML INJ IVP PRN (11:11)
[2017-12-27 11:53] LABS: PLATELET COUNT 282 10^3/uL (150-400)
[2017-12-27] MEDS: fentaNYL 100 MCG/2 ML INJ IVP PRN ×4 (14:12→22:57)
[2017-12-27] MEDS ORDERED: hydrALAZINE 20 MG/ML VIAL IVP PRN (16:41)
[2017-12-27] MEDS ORDERED: ALPRAZolam 0.25 MG TAB PO PRN (16:50)
[2017-12-27] MEDS ORDERED: oxyCODONE IR 5 MG TAB PO PRN (16:54)
[2017-12-27] MEDS: PIPERACILLIN/TAZO 3.375 GM/DEX 50 ML IV SCH ×2 (17:53→23:05)
--- NOTE | 2017-12-27 17:56 | GHP ---
[f rep st] HISTORY AND PHYSICAL DATE OF ADMISSION: 12/27/2017 CHIEF COMPLAINT: Hematochezia. HISTORY OF PRESENT ILLNESS: The patient is a pleasant 67-year-old female with a past medical history of hypertension, as well as bipolar disorder, who developed abdominal symptoms 1 day prior to coming into the emergency room. She was having generalized abdominal cramping, associated with nausea and vomiting as well as diarrhea. This morning, however, she started passing clots of blood with her bow els and came in to [facility] for further evaluation. PAST MEDICAL HISTORY: 1. Bipolar disorder 2 with depression. 2. Hypertension. 3. Recent evaluation for pheochromocytoma, which was found to be negative. 4. History of recurrent small bowel obstructions. PAST SURGICAL HISTORY: 1. Appendectomy. 2. History of small bowel obstructions with history of resection in the past. MEDICATIONS: This medication list is taken from her ambulatory orders. 1. Xanax 0.25 mg daily as needed. 2. Amlodipine 2.5 mg daily. 3. Labetalol 200 mg twice a day. 4. Lamictal 300 mg nightly. 5. Lisinopril 20 mg daily and 40 mg at night. 6. Omeprazole 20 mg daily. 7. Paroxetine 37.5 mg ER tablet daily. 8. Simvastatin 20 mg nightly. 9. Zolpidem 12.5 mg nightly. ALLERGIES: Penicillin, which she states reportedly caused a rash. This was by her report many years ago. FAMILY HISTORY: No family history of Crohn disease or ulcerative colitis. SOCIAL HISTORY: Patient was a former smoker, quitting about 3 years ago. She is currently a nd lives with her . CODE STATUS: Full code status. REVIEW OF SYSTEMS: CONSTITUTIONAL: No complaints of any fevers or chills. ENT: No recent upper re spiratory illnesses. CARDIOVASCULAR: No complaints of chest pains, palpitations, or syncopal episod es. RESPIRATORY: No complaints of shortness of breath or productive cough. GI: Positive for nause a, vomiting, abdominal pain, diarrhea and bloody stools and blood clots per rectum today. NEUROLOGIC : No complaints of any headaches or focal weakness. HEMATOLOGIC: No history of any deep vein throm bosis or pulmonary embolism. PSYCHIATRIC: Positive for anxiety history as well as depression and bi polar disorder, and currently followed by Psychiatry. ENDOCRINE: No history of hypothyroidism or di abetes. SKIN: No new or recent skin rashes. MUSCULOSKELETAL: No focal joint pains. PHYSICAL EXAM: VITAL SIGNS: Temperature 37.4, blood pressure 107/73, heart rate 84, respirations 16 , saturating 98% on room air. GENERAL: Patient mildly uncomfortable, but awake, alert, conversant, a ble to provide much of the history HEENT: Extraocular movements appear intact. No scleral icterus. NECK: Supple. No adenopathy or thyroid enlargement appreciated. CHEST: Clear on auscultation. Normal respiratory effort. HEART: Regular, and no murmurs appreciated. Regular on exam. ABDOMEN: Nondistended. She did tolerate mild palpation of the abdomen. Bowel sounds present but diminished. No rebound tenderness. : No Price catheter in place. EXTREMITIES: No significant pitting dianne a. NEUROLOGIC: Cranial nerves 2-12 appear grossly intact with 5/5 strength in extremities. LABORATORY DATA: White blood cell count is 13, hemoglobin 11, platelets 316. Sodium 132, potassium 4.6, chloride 98, bicarb 16, BUN 18, creatinine 0.7, glucose 164. INR is 1.05, PTT 22. AST 23, ALT 19, alkaline phosphatase 83, bilirubin 0.4. Lipase within normal limits. IMAGING: CT abdomen: No evidence of diverticulitis. Segment of splenic flexure that is thickened w ithout surrounding inflammation. Ischemic colitis is a possibility in the setting of significant ath erosclerotic disease noted within the abdominal aorta. No free air or fluid collection. No suggesti on of ileus or obstruction. ASSESSMENT/PLAN: 1. Gastrointestinal bleed. I have reviewed the case with Dr. Stewart with GI and our current thought is to obtain a GI pathogen panel to see if this could possibly be something infectious, but likely m ay be ischemic colitis. We will put the plans for colonoscopy on hold until we have the results from the PCR panel back. If this is in fact negative, then we will plan for colonoscopy, likely to be th is coming Saturday. I did put in for a clear liquid diet, but n.p.o. after midnight. I am checking he moglobin levels every 8 hours as well to monitor for any instability. We will place her on empiric a ntibiotics until further evaluation. 2. Abdominal pain, quite severe at times during the day. I adjusted her pain medication to IV fenta nyl at 50 to 100 mcg every 2 hours as needed, oral oxycodone was added as well if she can take oral m edications. 3. Acute blood loss anemia. Hemoglobin is trending down just slightly from 11 to 10. We will monit or every 8 hours overnight. 4. Hypertension. We will hold antihypertensives for now to ensure she does not become hypotensive. I do have a p.r.n. hydralazine order should she become hypertensive. 5. Bipolar disorder. Continue current psychiatric regimen including Lamictal, Paxil. I do have p.r .n. lorazepam in case of anxiety. 6. Deep venous thrombosis prophylaxis with compression devices. No Lovenox or heparin in light of ernie padron. 7. Disposition. I anticipate she will be here for over 2 midnights. I will admit her under inpatie nt status. /[id number]/MODL
--- NOTE | 2017-12-27 18:12 | PDMN ---
Medical Necessity Medical necessity: C/M review: est. > 2 MN LOS for eval and TX of acute - gastrointestinal bleed, abdominal pain, blood loss anemia, requiring planned GI consult, ongoing IV Zosyn, IV fluids, monitor Hgb / Hct, comorbid bipolar disorder with depression, hypertension, recent evaluation for pheochromocytoma which was negative, history of recurrent small bowel obstructions per H/P.
[2017-12-27 18:40] LABS: PLATELET COUNT 295 10^3/uL (150-400)
[2017-12-27] MEDS: ONDANSETRON 4 MG/2 ML VIAL IVP PRN (19:42)
[2017-12-27] MEDS: LORazepam 2 MG/ML INJ IVP PRN (19:57)
[2017-12-27] MEDS ORDERED: CIPROFLOXACIN 400 MG/DEXTROSE 200 ML IV SCH (21:00)
[2017-12-27] MEDS: lamoTRIgine 100 MG TAB PO SCH (21:18)
[2017-12-27] MEDS: PARoxetine CR 12.5 MG TAB PO SCH (21:19)
[2017-12-28] MEDS: fentaNYL 100 MCG/2 ML INJ IVP PRN ×6 (01:49→23:48)
[2017-12-28] MEDS: NS 1,000 ML IV SCH ×3 (01:49→23:47)
[2017-12-28 01:59] LABS: PLATELET COUNT 243 10^3/uL (150-400)
[2017-12-28] MEDS: PIPERACILLIN/TAZO 3.375 GM/DEX 50 ML IV SCH (05:35)
[2017-12-28] MEDS: PANTOPRAZOLE SODIUM 40 MG VIAL IVP SCH (08:28)
[2017-12-28 09:39] LABS: PLATELET COUNT 260 10^3/uL (150-400)
[2017-12-28] MEDS: PIPERACILLIN SODIUM/TAZOBACTAM 3.375 GM in D5W 50 ML IV SCH ×3 (11:36→23:47)
[2017-12-28] MEDS: ONDANSETRON 4 MG/2 ML VIAL IVP PRN ×2 (11:36→17:09)
--- NOTE | 2017-12-28 13:21 | HOSPPROG ---
Hospitalist Progress Note Assessment/Plan: #Hematochezia: DDx: ischemic colitis, infection -suspect ischemia. Lactate was 4, now resolved with fluids. Bowel rest. Awaiting GI PCR. If negative, consider scope #Acute blood loss anemia: due to above. H/H stable #Mild tachycardia: NS at 100cc #h/o bowel obstruction #HTN: stable. Recent eval for pheo was negative #Bipolar with depression: home meds #Diet: NPO, IVFs #Disp: cont inpatient admission for IVFs, bowel rest, possible endoscopy Subjective: pain controlled with meds. No BM today Objective: Vital Signs Temp Pulse Resp BP Pulse Ox 36.9 C 96 16 122/70 H 95 12/28/17 12:05 12/28/17 12:05 12/28/17 12:05 12/28/17 12:05 12/28/17 12:05 Laboratory Results 12/28/17 09:11 12/28/17 01:56 12/27/17 12/28/17 12/29/17 05:59 05:59 05:59 Intake Total 4300 Output Total 1300 400 Balance 3000 -400 PT 13.9 SEC (12.0-15.0) 12/27/17 06:40 INR 1.05 (0.83-1.16) 12/27/17 06:40 - Physical Exam Constitutional: no apparent distress Eyes: PERRL Ears, Nose, Mouth, Throat: moist mucous membranes Cardiovascular: regular rate and rhythym Respiratory: no respiratory distress, no rales or rhonchi Gastrointestinal: normoactive bowel sounds, soft, non-tender abdomen, No tenderness Genitourinary: no bladder fullness Skin: warm Musculoskeletal: full muscle strength Neurologic: AAOx3, CN II-XII Intact Psychiatric: interacting appropriately ICD10 Worksheet Patient Problems: Problems Problem Status Onset Abdominal pain Acute Colitis Acute Heart palpitations Acute Hypertension Acute Hypertensive urgency Acute Tachycardia Acute
--- NOTE | 2017-12-28 13:43 | GCON ---
[f rep st] CONSULTATION GI CONSULTATION DATE OF CONSULTATION: 12/28/2017 REFERRING PHYSICIAN: Akanksha Benson MD REASON FOR CONSULTATION: Hematochezia and abnormal CT scan of the abdomen. HISTORY OF PRESENT ILLNESS: The patient is a 67-year-old female, who is known to our practice, who h as had several colonoscopies in the past for history of adenomatous colon polyps, her most recent col onoscopy approximately 3 years ago, who was admitted to the hospital yesterday with a 1-day history o f generalized abdominal cramping, associated with nausea and vomiting, followed by bloody bowel movem ents. She has had no further bowel movements since admission. She denied any recent antibiotic use or NSAID use. During admission and evaluation she was found to have sigmoid colon thickening with goss rrounding inflammation, most consistent with ischemic colitis. Her abdominal pain has markedly impro сергей since admission. She has had no further bowel movements. MEDICATIONS: Prior to admission included: Xanax 0.25 mg p.o. daily, amlodipine 2.5 mg daily, labeta lol 200 mg p.o. twice daily, Lamictal 300 mg p.o. at bedtime, lisinopril 20 mg p.o. q.a.m. and 40 mg p.o. q.p.m., omeprazole 20 mg p.o. daily, paroxetine 37.5 mg ER tablet daily, simvastatin 20 mg p.o. daily, and zolpidem 12.5 mg nightly. ALLERGIES: Penicillin. PAST MEDICAL HISTORY: Significant for essential hypertension, gastroesophageal reflux, bipolar affec tive disorder type 2 with depression. PAST SURGICAL HISTORY: Significant for appendectomy, and multiple laparotomies for small bowel obstr uctions in the past. FAMILY HISTORY: Negative for inflammatory bowel disease or GI malignancies. SOCIAL HISTORY: She is a former smoker with a multi pack-year history, though she quit 3 years ago. She does not drink significant quantities of alcohol. She lives with her in [place]. REVIEW OF SYSTEMS: Other than complaints of generalized abdominal pain, nausea, vomiting, blood in t he stool, and depression, was negative for comprehensive review of systems. EXAMINATION: VITAL SIGNS: Today, temperature 36.9 Celsius, pulse 96 regular, blood pressure 122/70, respiratory rate was 16, O2 saturation 95% on 2 L per nasal cannula. GENERAL: A well-developed, we ll-nourished female, lying in bed, no apparent distress. INTEGUMENT: Clear. HEENT: Head atraumati c, normocephalic. Pupils equal, round, reactive to light. EOM intact. Sclerae nonicteric. Nares p atent. Mucous membranes moist. Dentition fair. NECK: Supple. Trachea was midline. LYMPHATICS: No cervical, axillary adenopathy palpated. PULMONARY: Lungs clear to percussion and auscultation. CARDIOVASCULAR: Regular rhythm rate. Normal S1, S2 without murmur. Peripheral pulses strong bilate rally. No pedal edema. GASTROINTESTINAL: Abdomen supple. Positive bowel sounds. No liver, spleen tip palpable. There is tenderness in left lower quadrant to deep palpation without palpable mass or rebound. EXTREMITIES: Without deformity. NEURO: The patient was alert, oriented x3. There are no focal neurologic deficits. LABS: White count on admission is 13.10, white count today 10.24, hemoglobin on admission was 11.8, hemoglobin today 10.2, platelets 260,000 today. Electrolytes were normal today with a glucose of 119 , BUN of 10. Urinalysis was normal. Pro-time 13.9, INR 1.05, PTT 22.6. LFTs were normal. Lipase [address] scan of the abdomen on admission revealed no evidence of diverticulosis or diverticulitis. There is thickening of the splenic flexure without associated surrounding mesenteric inflammatory changes c onsistent with ischemic colitis. There was also significant atherosclerotic disease in the abdominal or aorta. There was no free fluid noted. IMPRESSION: 1. Clinical setting presentation consistent with acute ischemic colitis of the left colon, clinicall y resolving. 2. Elevated white count on admission consistent with #1. 3. Bipolar affective disorder. 4. Essential hypertension. RECOMMENDATIONS: 1. Conservative management with IV fluids. 2. Stool for C difficile toxin with next bowel movement. 3. No need for urgent endoscopic evaluation at this time. /[id number]/MODL
--- NOTE | 2017-12-28 16:38 | ASMTCMCOM ---
CM Note CM Note Notes: 12/28/3017 Case Management Note Discussed pt with RN. There are no anticipated case management d/c needs d/t marital status and activity levels prior to admission. There are no PT or OT evals ordered at this time and pt is ambulating without difficulty in her room. Case Management d/c poc: Independent. Case Management available if needs change. Date Signed: 12/28/2017 04:37 PM Electronically Signed By:Lilli Maldonado RN
[2017-12-28] MEDS ORDERED: ACETAMINOPHEN 325 MG TAB PO PRN (17:46)
[2017-12-28] MEDS: PARoxetine CR 12.5 MG TAB PO SCH (20:48)
[2017-12-28] MEDS: lamoTRIgine 100 MG TAB PO SCH (20:48)
[2017-12-28] MEDS: LORazepam 2 MG/ML INJ IVP PRN (20:48)
--- NOTE | 2017-12-28 20:50 | SOAPPROG ---
SOAP Progress Note Assessment/Plan: Assessment:significantly improved LLQ pain. no further bloody bm. minimal cramps. afebrile. abd soft, nondistended, nontender. isch colitis - improving - no further workup/treatment warranted at this time other than supportive care measures. GI note appreciated - I am in agreement with their reccs as well. interestingly, this is her second attack in the last month - she reports that both episodes were preceded by hypertensive crises - query vasoconstriction as her inciting etiology? she is working with dr. starks in the oupt setting regarding her BP mgmnt. ok to adv diet as tolerated from a surgical perspective. will sign off for now. please call with further questions or concerns. Plan: 12/28/17 20:47 12/28/17 20:51 Objective: Vital Signs Temp Pulse Resp BP Pulse Ox 37.0 C 102 H 17 129/69 H 96 12/28/17 15:18 12/28/17 15:18 12/28/17 15:18 12/28/17 15:18 12/28/17 15:18 Laboratory Results 12/28/17 09:11 12/28/17 01:56 12/27/17 12/28/17 12/29/17 05:59 05:59 05:59 Intake Total 4300 1202 Output Total 1300 1000 Balance 3000 202 PT 13.9 SEC (12.0-15.0) 12/27/17 06:40 INR 1.05 (0.83-1.16) 12/27/17 06:40 ICD10 Worksheet Patient Problems: Problems Problem Status Onset Abdominal pain Acute Colitis Acute Heart palpitations Acute Hypertension Acute Hypertensive urgency Acute Tachycardia Acute
[2017-12-28 20:56] VITALS: RESP 16
[2017-12-29] MEDS: PIPERACILLIN SODIUM/TAZOBACTAM 3.375 GM in D5W 50 ML IV SCH (05:19)
[2017-12-29] MEDS: PANTOPRAZOLE SODIUM 40 MG VIAL IVP SCH (09:12)
[2017-12-29 09:15] VITALS: BP 130/71; PULSE 101; TEMP 99.2; O2SAT 92
--- NOTE | 2017-12-29 10:31 | ASDISCHSUM ---
Discharge Information Plan Status:Home with No Needs Medically Cleared to Leave:12/29/2017 Discharge Date:12/29/2017 CM D/C Disposition:Home, Routine, Self-Care ADT D/C Disposition:Home, Routine, Self-Care Projected Discharge Date:12/29/2017 Transportation at D/C:Family Discharge Delay Reason: Follow-Up Date:12/29/2017 Discharge Slot: Final Diagnosis: Placement Information Patient Contact Information Contact Name:PETERSON Relationship: Address:[address] Work Phone: City:[place] Phone: State/Zip Code:[place] [address] Email: Financial Information Financial Class:Medicare Primary Plan Desc:MEDICARE INPATIENT Primary Plan Number:[id number] Secondary Plan Desc:[employer]/MDR SUPPLEMENT Secondary Plan Number:[id number] Assessment Information [facility] CM Progress Note CM Note CM Note Notes: 12/28/3017 Case Management Note Discussed pt with RN. There are no anticipated case management d/c needs d/t marital status and activity levels prior to admission. There are no PT or OT evals ordered at this time and pt is ambulating without difficulty in her room. Case Management d/c poc: Independent. Case Management available if needs change. Date Signed: 12/28/2017 04:37 PM Electronically Signed By:Lilli Maldonado RN Case Management Discharge Plan Note Case Management Discharge Discharge Order Complete? Answers: Yes Patient to Obtain Answers: Independently Medications Transportation Arranged Answers: Family/Friends Family Notified Answers: Yes Notes: in room Discharge Comments Notes: 12/29/2017 Case Management Note Met w/pt and . IM completed. There are no identified case management d/c needs. Pt to d/c independent. Date Signed: 12/29/2017 10:30 AM Electronically Signed By:Lilli Maldonado RN Intervention Information Intervention Type:*IM-Signed Date of Service:12/29/2017 10:30 AM Patient Type:Inpatient Staff Member:DANIELLE Maldonado, Lilli Hours: Discipline: Severity: Comment:
--- NOTE | 2017-12-29 10:33 | ASMTLACE ---
DANIEL Length of stay for Answers: 2 days current admission Acuity / Level of Answers: Yes Care: Did the patient have an inpatient admission? Comorbidities - select Answers: Other Notes: HTN, recurrent small all that apply bowel obstructions, HTN # of Emergency department Answers: 1-2 visits in the last 6 months Social determinants Answers: Mental health diagnosis (anxiety, depression, pers onality disorders, etc.) Score: 10 Date Signed: 12/29/2017 10:32 AM Electronically Signed By:Lilli Maldonado RN
--- NOTE | 2017-12-29 13:53 | GDS ---
[f rep st] DISCHARGE SUMMARY DISCHARGE DIAGNOSES: 1. Hematochezia. 2. Acute blood loss anemia. 3. Mild tachycardia. 4. History of bowel obstruction. 5. Labile hypertension. 6. Bipolar with depression. 7. Lactic acidosis. HISTORY OF PRESENT ILLNESS: A pleasant 67-year-old female with hypertension, history of bowel obstru ction, presenting with abdominal pain for 1 day prior to presenting to ER. Described it as cramping in her lower abdomen, associated with nausea, vomiting. The morning of admission she started passing clots of blood, thus came to the ER. She says she had a similar episode about a month ago. She den ies any recent travel or unusual foods. No recent antibiotics. HOSPITAL COURSE BY PROBLEM: 1. Ischemic colitis: Suspect bloody diarrhea is due to ischemia. She has remained afebrile without a white count. She has not had a bowel movement here to check a PCR. This is her second attack wit hin the last month. She says both these were preceded by significant hypertension. She was treated supportively here with IV fluids and has tolerated p.o. without issue today. If she were to have rec urrent diarrhea, she could always obtain an outpatient GI PCR. 2. Lactic acidosis: Secondary to colitis, as well as dehydration. This resolved quickly with IV fl uids. 3. Acute blood loss anemia, again secondary to #1: Given no further episodes. Suspect ischemia. C olonoscopy not warranted at this time. She was evaluated by both GI and surgery, who agreed with sup portive care. 4. Labile hypertension. She has been followed by Dr. Jeff. Recently changed to labetalol. Natividad nue this with lisinopril and Norvasc. She was worked up at [facility] for pheochromocyto ma, that was negative. She had abdominal MRI here late last year, without evidence of renal artery s tenosis. Continue to follow up with Cardiology. Blood pressures have been well controlled here. 5. History of bowel obstruction. No evidence on imaging. 6. Bipolar with depression. Continue home medications. 7. Tachycardia, secondary to pain and blood loss. This is resolved. DISPOSITION: Patient is stable for discharge home with her . MEDICATIONS: No new medications. FOLLOW UP: 1. Dr. Jeff with Cardiology. 2. Dr. Rosario, her PCP. PHYSICAL EXAM: VITAL SIGNS: Today, temperature 37.3, blood pressure 130/71, heart rate in the 90s, respirations 16, 92% on room air. GENERAL: Well appearing, sitting up in bed, in no acute distress. HEENT: PERRLA. Moist mucous mem branes. CV: Regular rate and rhythm. LUNGS: Clear bilaterally. ABDOMEN: Soft, nondistended. No tenderness to palpation. Positive bowel sounds. : No Price. MUSCULOSKELETAL: 02/08. /[id number]/MODL
== END 2017-12-29 10:35 | disposition home or self-care (01) | DRG 394 ==
LOC: F1N 11:32
PROVIDERS: ADMIT Family Medicine; ATTEND Family Medicine
DX: K55.9 Vascular disorder of intestine, unspecified (principal); K92.1 Melena; D62 Acute posthemorrhagic anemia; E87.2 Acidosis; R00.0 Tachycardia, unspecified; E86.0 Dehydration; I10 Essential (primary) hypertension; F31.9 Bipolar disorder, unspecified; K21.9 Gastro-esophageal reflux disease without esophagitis; E78.00 Pure hypercholesterolemia, unspecified; Z87.891 Personal history of nicotine dependence
CPT/HCPCS: J1170; J1335; J2060; J2405; J2543; J3010; Q9967

== ENCOUNTER 2018-12-27 09:55 | Inpatient (IN) | payer OTHER, MEDICARE ==
[2018-12-27] MEDS ORDERED: NS 1,000 ML IV ONE (10:13)
[2018-12-27] MEDS ORDERED: fentaNYL 100 MCG/2 ML INJ IVP ONE (10:13)
[2018-12-27] MEDS ORDERED: ONDANSETRON 4 MG/2 ML VIAL IVP ONE (10:14)
--- NOTE | 2018-12-27 10:24 | EDPHY ---
General Time Seen by Provider: 12/27/18 10:07 Narrative: CLINICAL IMPRESSION: Small-bowel obstruction ASSESSMENT/PLAN: 68-year-old female with past medical history of prior small bowel obstructions , ischemic colitis, and bipolar disease presents to the emergency department with 2 days of generalized right-sided abdominal pain, nausea, and anorexia. No reported vomiting. Patient has small bowel movement this morning and has passed a small amount of flatus. However she appears very uncomfortable on arrival. Vital signs stable. Abdomen with generalized right-sided discomfort and guarding. Labs reassuring with no significant leukocytosis or metabolic disturbance. CT scan read by Radiology showing a moderate SBO with a transition point in the lower pelvis, no associated colitis or ascites, distal ileum appears decompressed. Patient improved with IV analgesics. I discussed with Dr. Ahmet Cho who will see and admit the patient primarily. She was stabilized in the ED prior to admission. DIFFERENTIAL DX: Abdominal pain includes but not limited to urinary tract infection, pyelonephritis, infection, ectopic , salpingitis, TOA, ovarian torsion, ovarian cyst, endometriosis, uterine fibroids, acute appendicitis, acute diverticulitis, small-bowel obstruction, constipation ED PROCEDURES: See lab and/or imaging results below ED COURSE: 10:20 a.m.:. Patient seen and assessed by myself. Reports 8/10 pain. Mild guarding to right abdomen. Afebrile, vital signs stable. Plan for IV, fluid bolus, anti emetics, analgesics, labs and CT. 11:30 a.m.: CT results discussed with Dr. Cowan. Patient with moderate SBO, transition point in the lower pelvis, colon Appears okay with no ascites, distal ileum is decompressed. Discussed with Dr. Ahmet Cho who agreed admit the patient primarily and see in the emergency department. Patient is agreeable to admission. Declining further analgesics at this time. CHIEF COMPLAINT: Abdominal pain and nausea HPI: 68-year-old female with reported past medical history of prior small bowel obstructions and ischemic colitis presents to the emergency department 2 days of generalized right-sided abdominal pain. Patient's abdominal surgery history includes appendectomy as well as "removal of scar tissue around the appendectomy site". She reports 2 episodes of small-bowel obstruction as well as ischemic colitis requiring hospitalization. She reports nausea but no vomiting. She had a very small bowel movement this morning and has been passing flatus. She had a normal bowel movement yesterday. No bloody stools. No reported fever or chills. No urinary symptoms, flank pain or back pain. She reports she is concerned she has another partial small-bowel obstruction. She has not had anything to eat or drink today. Pain is rated 8/10. She has not taken anything for this. She took an antibiotic recently for tooth extraction but denies diarrhea PAST MEDICAL HISTORY: Hypertension, bipolar, SBO, ischemic colitis See nurse/triage notes for additional history if applicable Pertinent Past Surgical History: Appendectomy, SBO Family History: Noncontributory Social History: , here with her REVIEW OF SYSTEMS: All other systems negative Constitutional: No fever, no chills, positive for appetite change. Cardiovascular: No chest pain, no palpitations. Respiratory: No cough, no shortness of breath. Gastrointestinal: Positive for abdominal pain and nausea, no vomiting, diarrhea. Genitourinary: No hematuria, dysuria, flank pain, pelvic pain Musculoskeletal: No back pain, joint swelling, joint pain, myalgias. Skin: No rashes, color change. Neurological: No headache, dizziness, weakness. PHYSICAL EXAM: General Appearance: Alert, oriented, appropriate, cooperative, appears uncomfortable, sitting with her legs drawn towards her body, VSS, no hypoxia. Respiratory: There are no retractions, lungs are clear to auscultation. Cardiac: Regular rate and rhythm, no murmurs or gallops. Gastrointestinal: Abdomen is soft, generalized tenderness predominantly to the right side of the abdomen associated with mild guarding, hyperactive bowel sounds, no masses/hernia, no rigidity Neurological: [ Alert and oriented x 3, CN 2-12 grossly intact Skin: Warm, dry, no rashes, no nodules on palpation. Psychiatric: Patient is oriented X 3, there is no agitation. MEDICAL DECISION MAKING: Patient was seen independently. Secondary supervising physician at time of evaluation was Dr. Correa. Diagnosis: Small-bowel obstruction . New, requires workup Summary: See Assessment and Plan for summary of ED visit Clinical lab tests: ordered / reviewed. Independent visualization of images, tracing, or specimens: Yes. Decision to obtain medical records or history from someone other than the patient: None Review / Summarize previous medical records: None available Discussed patient with another provider: Dr. Correa, Dr. Cho Patient Progress: Stable for admission. - Diagnostics Imaging Results: Imaging Impressions Abdomen CT 12/27/18 10:20 Impression: 1. Moderate small bowel obstruction, transition point within the pelvis. 2. Extensive aortic atherosclerosis. Results called to Allan Toth PA-C at 11:30 AM - History Smoking Status: Former smoker - Objective Vital Signs: Initial Vital Signs Temperature (C) 36.8 C 12/27/18 10:01 Heart Rate 72 12/27/18 10:01 Respiratory Rate 18 12/27/18 10:01 Blood Pressure 110/68 12/27/18 10:01 O2 Sat (%) 92 12/27/18 10:01 O2 Delivery Mode Room Air Allergies/Adverse Reactions: Penicillins Allergy (Verified 12/27/17 06:26) Rash Home Medications: Medication Instructions Recorded Nebivolol HCl [Bystolic 5 mg (*)] 5 mg PO HS 12/27/18 PARoxetine HCL [Paroxetine ER] 37.5 mg PO HS 12/27/18 Simvastatin 20 mg PO HS 12/27/18 ZOLPIDEM TARTRATE [Ambien CR 12.5 12.5 mg PO HS 12/27/18 mg] lamoTRIgine [Lamictal] 300 mg PO HS 12/27/18 Laboratory Results: Laboratory Results 12/27/18 10:10 12/27/18 10:10 12/27/18 12/27/18 10:10 10:10 WBC 6.57 10^3/uL 10^3/uL (3.80-9.50) RBC 4.71 10^6/uL 10^6/uL (4.18-5.33) Hgb 14.2 g/dL g/dL (12.6-16.3) Hct 42.8 % % (38.0-47.0) MCV 90.9 fL fL (81.5-99.8) MCH 30.1 pg pg (27.9-34.1) MCHC 33.2 g/dL g/dL (32.4-36.7) RDW 12.2 % % (11.5-15.2) Plt Count 314 10^3/uL 10^3/uL (150-400) MPV 9.0 fL fL (8.7-11.7) Neut % (Auto) 83.5 % H % (39.3-74.2) Lymph % (Auto) 9.9 % L % (15.0-45.0) [place] % (Auto) 5.0 % % (4.5-13.0) Eos % (Auto) 0.6 % % (0.6-7.6) Baso % (Auto) 0.5 % % (0.3-1.7) Nucleat RBC Rel Count 0.0 % % (0.0-0.2) Absolute Neuts (auto) 5.49 10^3/uL 10^3/uL (1.70-6.50) Absolute Lymphs (auto) 0.65 10^3/uL L 10^3/uL (1.00-3.00) Absolute Monos (auto) 0.33 10^3/uL 10^3/uL (0.30-0.80) Absolute Eos (auto) 0.04 10^3/uL 10^3/uL (0.03-0.40) Absolute Basos (auto) 0.03 10^3/uL 10^3/uL (0.02-0.10) Absolute Nucleated RBC 0.00 10^3/uL 10^3/uL (0-0.01) Immature Gran % 0.5 % % (0.0-1.1) Immature Gran # 0.03 10^3/uL 10^3/uL (0.00-0.10) Sodium 134 mEq/L L mEq/L (135-145) Potassium 4.5 mEq/L mEq/L (3.5-5.2) Chloride 96 mEq/L L mEq/L (97-110) Carbon Dioxide 24 mEq/l mEq/l (22-31) Anion Gap 14 mEq/L mEq/L (6-14) BUN 21 mg/dL mg/dL (7-23) Creatinine 0.7 mg/dL mg/dL (0.6-1.0) Estimated GFR > 60 Glucose 121 mg/dL H mg/dL (70-100) Calcium 10.0 mg/dL mg/dL (8.5-10.4) Medications Given: Discontinued Medications Fentanyl (Sublimaze) 50 mcg IVP EDNOW ONE Stop: 12/27/18 10:14 Last Admin: 12/27/18 10:17 Dose: 50 mcg Sodium Chloride (Ns) 1,000 mls @ 0 mls/hr IV ONCE ONE; Wide Open PRN Reason: Protocol Stop: 12/27/18 10:14 Last Admin: 12/27/18 10:17 Dose: 1,000 mls Ondansetron HCl (Zofran) 4 mg IVP EDNOW ONE Stop: 12/27/18 10:15 Last Admin: 12/27/18 10:17 Dose: 4 mg Departure - Departure Disposition: [facility] Acute Clinical Impression: Small bowel obstruction Condition: Good
[2018-12-27] MEDS ORDERED: IOPAMIDOL (ISOVUE-300) 100 ML BTL ONE (10:26)
[2018-12-27 10:37] LABS: PLATELET COUNT 314 10^3/uL (150-400)
[2018-12-27] MEDS ORDERED: ONDANSETRON 4 MG/2 ML VIAL IVP PRN (13:32)
[2018-12-27] MEDS ORDERED: D5W 1/2 NS W/ 20 KCl/L 1,000 ML IV SCH (13:45)
--- NOTE | 2018-12-27 15:19 | ASMTCMCOM ---
CM Note CM Note Notes: Pt presented to the ED for 2 days of right-sided abdominal pain. Pt has a history of 2 small bowel obstructions and ischemic colitis. Pt admitted for SBO. Pt lives at home with her , Osorio, and pt is normally ind w/ADLs, etc. Exact DC needs TBD. CM to follow. Date Signed: 12/27/2018 03:18 PM Electronically Signed By:Vane Carter RN
--- NOTE | 2018-12-27 15:29 | GHP ---
[f rep st] PREOP HISTORY AND PHYSICAL DATE OF ADMISSION: 12/27/2018 The patient is a 68-year-old female who was admitted with a probable small bowel obstruction demonstr ated on CT scan. She has been having crampy abdominal pains for over 12 hours. She has had prodrome s of this over the last week or 2. She has had multiple admissions for bowel obstructions. She had surgery for a bowel obstruction 5 years ago. Her only other abdominal surgery was an appendectomy at age 18, which was not perforated. She has not been vomiting. She had a small bowel movement earlie r this morning but was not passing gas and is slightly distended with crampy abdominal pains. She al so has a history of irritable bowel syndrome. Admitted at this time for observation. Risks and opti ons have been fully discussed. PAST HISTORY: Includes an appendectomy, laparotomy with lysis of adhesions, ischemic colitis, multip le small bowel obstructions and bipolar disease and hypertension. PRESENT MEDICATIONS: Bystolic, Lamictal, Prozac and others. ALLERGIES: None. REVIEW OF SYSTEMS: Negative on full 10-point review except as related to the HPI and Past History. SOCIAL HISTORY: Reveals she does not smoke. FAMILY HISTORY: Noncontributory. PHYSICAL EXAM: GENERAL: Reveals an alert 68-year-old female in no acute distress, afebrile. HEENT: Reveals no icterus or adenopathy. PERRLA. EOMs intact. NECK: Supple, nontender without bruits w ith full range of motion. CHEST: Clear and symmetric. CARDIAC: Exam reveals a regular rhythm. AB DOMEN: Soft, slightly distended, mildly tender in the right lower quadrant. Positive bowel sounds. No hernias and no masses. EXTREMITIES: Reveal full range of motion, full pulses. NEUROLOGIC: Exa m was physiologic and symmetric. PSYCH: Exam reveals her to be alert, oriented and cooperative. IMPRESSION: Partial small bowel obstruction. PLAN: Admit for observation. If she has increasing pain or nausea or emesis, she will need an NG tu be, and we will need to consider laparoscopy and/or laparotomy for small bowel obstruction. The risk s and options have been fully discussed, and she understands and wishes to proceed. /[id number]/MODL
[2018-12-27] MEDS ORDERED: PAROXETINE HCL 37.5 MG PO SCH (21:00)
[2018-12-27] MEDS ORDERED: NEBIVOLOL HCL 5 MG TAB PO SCH (21:00)
[2018-12-27] MEDS ORDERED: lamoTRIgine 100 MG TAB PO SCH (21:00)
[2018-12-27] MEDS ORDERED: NON-FORMULARY NEW DRUG (Zolpidem Tartrate [Ambien Cr 12.5 Mg] 12.5 MG) PO SCH (21:00)
[2018-12-27] MEDS ORDERED: ZOLPIDEM TARTRATE 5 MG TAB PO SCH (21:00)
[2018-12-27] MEDS ORDERED: ACETAMINOPHEN 325 MG TAB PO PRN (21:43)
[2018-12-28 04:53] LABS: PLATELET COUNT 237 10^3/uL (150-400)
--- NOTE | 2018-12-28 08:19 | PDMN ---
Medical Necessity Medical necessity: Pt meets IP criteria as of 12/27/18 per MD and MCG M-210 ( Intestinal Obstruction); est los > 2 mn for ongoing tx and management of partial small bowel obstruction with abdominal pain and distention. Hx of ischemic colitis, multiple small bowel obstructions, HTN and bipolar disorder.
[2018-12-28] MEDS ORDERED: POLYETHYLENE GLYCOL 3350 17 GM PKT PO ONE (10:30)
[2018-12-28 12:35] VITALS: BP 157/81
--- NOTE | 2018-12-28 13:55 | SOAPPROG ---
SOAP Progress Note Assessment/Plan: Assessment: FEELING BETTER WITH FLATUS AND BM 2-WAY SHOWS RESOLUTION AFEBRILE CHEST CLEAR COR RR ABD SOFT, NONTENDER Plan:LAXATIVE, DIET, PROBABLY HOME 12/28/18 13:53 12/28/18 13:54 Objective: Vital Signs Temp Pulse Resp BP Pulse Ox 36.8 C 77 16 157/81 H 92 12/28/18 12:32 12/28/18 12:32 12/28/18 12:32 12/28/18 12:32 12/28/18 12:32 Laboratory Results 12/28/18 04:25 12/28/18 04:25 12/27/18 12/28/18 12/29/18 05:59 05:59 05:59 Intake Total 1999 480 Balance 1999 480 ICD10 Worksheet Patient Problems: Problems Problem Status Onset Small bowel obstruction Acute Abdominal pain Acute Colitis Acute Heart palpitations Acute Hypertension Acute Hypertensive urgency Acute Tachycardia Acute
--- NOTE | 2018-12-28 14:04 | SOAPPROG ---
SOAP Progress Note Assessment/Plan: Assessment: FEELING BETTER WITH FLATUS AND BM 2-WAY SHOWS RESOLUTION AFEBRILE CHEST CLEAR COR RR ABD SOFT, NONTENDER Plan:LAXATIVE, DIET, PROBABLY HOME 12/28/18 13:53 12/28/18 13:54 12/28/18 14: Objective: Vital Signs Temp Pulse Resp BP Pulse Ox 36.8 C 77 16 157/81 H 92 12/28/18 12:32 12/28/18 12:32 12/28/18 12:32 12/28/18 12:32 12/28/18 12:32 Laboratory Results 12/28/18 04:25 12/28/18 04:25 12/27/18 12/28/18 12/29/18 05:59 05:59 05:59 Intake Total 1999 480 Balance 1999 480 ICD10 Worksheet Patient Problems: Problems Problem Status Onset Small bowel obstruction Acute Abdominal pain Acute Colitis Acute Heart palpitations Acute Hypertension Acute Hypertensive urgency Acute Tachycardia Acute
[2018-12-28] MEDS ORDERED: PARoxetine CR 12.5 MG TAB PO SCH (21:00)
== END 2018-12-28 14:48 | disposition home or self-care (01) | DRG 390 ==
LOC: F1N 12:59 → OBSVTOIN 13:37
PROVIDERS: ADMIT Surgery; ATTEND Surgery
DX: K56.600 Partial intestinal obstruction, unspecified as to cause (principal); E86.9 Volume depletion, unspecified; F31.9 Bipolar disorder, unspecified; I10 Essential (primary) hypertension; Z88.0 Allergy status to penicillin
CPT/HCPCS: 96374; J2270; J2405; J3010; Q9967

== ENCOUNTER → 2019-01-05 | Outpatient (CLI) | payer OTHER, MEDICARE | LOC: FIMAGING 09:12 | PROVIDERS: ATTEND Surgery | DX: Z13.818 Encounter for screening for other digestive system disorders (principal); M41.86 Other forms of scoliosis, lumbar region ==